=== PATIENT | female | born 1945 | race Caucasian/White ===

== ENCOUNTER → 2017-04-04 13:51 | Outpatient (CLI) | payer MEDICARE, SELFPAY ==
--- NOTE | 2017-04-04 14:16 | VDLE_ITS ---
Reason For Study: swelling RIGHT LEFT GSV is normal. CFV is compressible, spontaneous, phasic, CFV is compressible, spontaneous, phasic, competent, and demonstrates normal competent and demonstrates normal augmentation. augmentation. FV is compressible, spontaneous, phasic, competent and demonstrates normal augmentation. POP V is compressible, spontaneous, phasic, competent and demonstrates normal augmentation. T/P Trunk is compressible. PTV is compressible. RT PerV is compressible. Procedure Exam performed in department. The exam was diagnostic. A preliminary report was called and/or faxed to Dr. Piña. Interpretation Summary Deep veins of the right lower extremity are patent and compressible segmentally. There is no evidence of right lower extremity deep vein thrombosis. Valvular competence appears intact within the proximal deep venous system on the right . The right greater saphenous vein appears patent and compressible segmentally. Ordering Physician: Vito Piña Performed By: Ahmet Worrell RVKiesha
== END ==
PROVIDERS: Family Provider Internal Medicine; PCP Internal Medicine; Visit Provider Internal Medicine Hematology & Oncology
DX: M79.89 Other specified soft tissue disorders (principal); C25.0 Malignant neoplasm of head of pancreas
CPT/HCPCS: 93971

== ENCOUNTER → 2017-05-02 10:07 | Outpatient (CLI) | payer MEDICARE, SELFPAY ==
[2017-05-02 10:15] VITALS: BP 128/61; PULSE 93; RESP 18; TEMP 36.5; O2SAT 99; BMI 25.2
[2017-05-02 11:01] VITALS: BP 122/63; PULSE 95; RESP 18; TEMP 36.6; O2SAT 95
[2017-05-02 12:01] VITALS: BP 122/54; PULSE 97; RESP 16; TEMP 36.6
[2017-05-02 12:52] VITALS: BP 115/57; PULSE 83; TEMP 36.1; O2SAT 97
== END ==
PROVIDERS: Family Provider Internal Medicine; PCP Internal Medicine; Visit Provider Internal Medicine Hematology & Oncology
DX: Z51.89 Encounter for other specified aftercare (principal); C25.0 Malignant neoplasm of head of pancreas
CPT/HCPCS: 36430; 86850; 86900; 86920; 86922; J7040; P9016; A4216

== ENCOUNTER 2017-05-12 12:30 | Inpatient (IN) | payer MEDICARE, SELFPAY ==
[2017-05-12] VITALS (18 sets, daily range): BP systolic 114–202; BP diastolic 40–88; PULSE 86–104; RESP 14–20; TEMP 36.6–37.2; O2SAT 85–99; BMI 26.6; BMI 27.3
--- NOTE | 2017-05-12 12:53 | CT_ITS ---
STUDY: CT ABDOMEN AND PELVIS WITH CONTRAST REASON FOR EXAM: Female, 72 years old. Hypoxia. Abdominal pain. History of pancreatic cancer. RADIATION DOSAGE (If Supplied By Facility): CTDIvol = ( 9.08 ) mGy, DLP = ( 994.05 ) mGycm TECHNIQUE: Transaxial images were obtained from the dome of the diaphragm to the symphysis pubis without oral contrast. 100 ml of Isovue 300 contrast was administered. Sagittal and coronal images were reconstructed. Individualized dose optimization techniques were used for this CT. COMPARISON: Comparison is made with prior study dated August 25, 2016. FINDINGS: Moderate sized bilateral pleural effusions with underlying infiltration and/or atelectasis at the lung bases. Small pericardial effusion. Pneumobilia is seen in the left hepatic ducts in keeping with prior hepatobiliary surgery. The patient is status post cholecystectomy. Normal spleen. There appears to be prior Whipple's procedure with resection of the tail portion of the pancreas. There is diffuse atrophy of the pancreas. Normal bilateral adrenal glands. Normal right kidney. Stable 1.5 cm cyst in the posterior-lateral portion of the left kidney. Normal visualized stomach. Normal small intestine. There are multiple colonic diverticula consistent with diverticulosis. The appendix is visualized and appears normal. There is diffuse atherosclerotic calcification of the abdominal aorta, without a demonstrated aneurysm. There is a 1 cm hypodensity in the left lobe of liver adjacent to the falciform ligament. This may represent a small cyst. Normal inferior vena cava. Normal retroperitoneum. Normal urinary bladder. Small amount of free fluid is seen in the pelvis. Normal abdominal wall. There are diffuse degenerative changes of the visualized lumbar spine. CT/Abdomen/Pelvis W IV Cont ONLY IMPRESSION: Status post partial resection of the pancreas. Small amount of free fluid in the pelvis. Bilateral pleural effusions with bibasilar atelectasis. Small pericardial effusion. Electronically Signed: Gab Wang MD at 15:01 EST Tel [phone], Service support ,
--- NOTE | 2017-05-12 12:53 | EKG12_ITS ---
Test Reason : Blood Pressure : / mmHG Vent. Rate : 093 BPM Atrial Rate : 093 BPM P-R Int : 210 ms QRS Dur : 086 ms QT Int : 338 ms P-R-T Axes : 054 -40 012 degrees QTc Int : 420 ms Sinus rhythm with sinus arrhythmia with 1st degree A-V block Left axis deviation Low voltage QRS Abnormal ECG Confirmed by CHETAN BROOKS, EMMIE ([id number]), acquisition editor KARTHIKEYAN TALBERT ([id number]) on 05/15/2017 2:54:53 PM Referred By: Vito Piña Confirmed By:EMMIE BENTON MD
--- NOTE | 2017-05-12 12:55 | CT_ITS ---
STUDY: CTA CHEST REASON FOR EXAM: Female, 72 years old. Hypoxia. History of pancreatic cancer. RADIATION DOSAGE (If Supplied By Facility): CTDIvol = ( 9.08 ) mGy, DLP = ( 994.05 ) mGycm TECHNIQUE: The examination was performed with the intravenous administration of 100 ml of Isovue 370 contrast material. Post-processing of the angiographic images was performed, with multiplanar reformation and 3D reconstruction. Individualized dose optimization techniques were used for this CT. COMPARISON: None. FINDINGS: A left-sided portacatheter is seen with the tip in the superior vena cava. Normal enhancement of the main pulmonary artery and right and left pulmonary arteries. Normal enhancement of the bilateral peripheral pulmonary arteries. There is no demonstrated pulmonary embolism. Normal thoracic aorta and visualized great vessels. There is no demonstrated aortic dissection. Small pericardial effusion. Normal mediastinum. Normal hilar regions. Normal visualized trachea and bronchi. The lungs are well expanded. Bilateral pleural effusions right greater than left with bibasilar infiltration and/or atelectasis is worse on the right side. Patchy areas of airspace disease in both upper lobes. Normal pleura. Normal chest wall structures. There are degenerative changes of thoracic spine. Normal visualized upper abdomen. CT/CTA Chest W/WO Contrast IMPRESSION: Bilateral pleural effusions right greater than left with bibasilar atelectasis and/or infiltration. Patchy airspace disease in both lungs slightly worse in the left upper lobe. Small pericardial effusion. Electronically Signed: Gab Wang MD at 15:03 EST Tel [phone], Service support ,
--- NOTE | 2017-05-12 13:01 | ED.DCSUM_ITS ---
- ER Visit Summary Date of Service: 05/12/17 Chief Complaint: Weakness History of Present Illness: The patient is a 72 F currently being treated with adjunctive chemotherapy for pancreatic cancer who presents with 2 weeks of worsening weakness and decreased appetite. Was seen by Dr. Piña, who sent her in for further evaluation. Patient has been having a dry cough, shortness of breath, abdominal pain diffusely, vomiting anytime she eats, decreased appetite and today loose bowels. She not on oxygen at home. Dr. Piña was concerned that her tumor marker for pancreatic cancer is elevated and her lung exam was also concerning for possible right pleural effusion. Family and patient state that she gets short of breath even just talking. Her legs are very weak and she is having difficulty supporting her weight. pt has diabetes, paroxysmal atrial fibrillation not on anticoagulation, hypertension, history of pancreatic cancer Physical Examination: Vital signs: afebrile, hypertensive at 202/88, heart rate tachycardic at 102, patient 85% on room air, hypoxic General: well nourished, well developed, in no distress Skin: warm, dry, no rash, no pallor HEENT: normocephalic and atraumatic; PERRL, EOMI, moist mucous membranes Cardiovascular: tachycardic rate and rhythm without murmurs, 3+ symmetric peripheral edema, peripheral perfusion intact Respiratory: Frequent dry cough noted, respirations shallow, lungs are clear to auscultation bilaterally, diminished breath sounds in the right lower field Abdominal: Abdomen is soft, diffusely tender with normoactive bowel sounds, no guarding or rebound, no masses MSK: Moves all extremities, no deformities, normal strength on the generalized weakness Neuro: Awake and alert, oriented ?4. No facial droop, sensation and motor function intact and symmetric Test Results: Abnormal Lab Results 05/12/17 05/12/17 05/12/17 13:04 13:04 13:04 WBC 4.4 RBC 2.27 L Hgb 7.9 L Hct 23.3 L MCV 102.6 H MCH 34.8 H MCHC 33.9 RDW 19.7 H RDW Differential 71.8 H Plt Count 166 MPV 10.1 Immature Gran % (Auto) 0.500 Neut % (Auto) 72.5 H Lymph % (Auto) 14.4 L [place] % (Auto) 12.4 H Eos % (Auto) 0.2 Baso % (Auto) 0.0 Absolute Neuts (auto) 3.2 Absolute Lymphs (auto) 0.63 L Total Counted Not Reportable Platelet Estimate ADEQUATE Polychromasia RARE Hypochromasia 2+ Anisocytosis 1+ Schistocytes 1+ PT 14.3 INR 1.1 APTT 85.7 H Sodium 138 Potassium 4.6 Chloride 107 Carbon Dioxide 21.0 Anion Gap 10 BUN 20 H Creatinine 1.36 H Estim Creat Clear Calc 31.34 Est GFR (MDRD) Af Amer 49 L Est GFR (MDRD) Non-Af 40 L BUN/Creatinine Ratio 14.7 Glucose 120 H Lactic Acid Calcium 8.2 L Total Bilirubin 1.10 H AST 27 ALT 20 Alkaline Phosphatase 103 Troponin I < 0.02 B-Natriuretic Peptide Total Protein 5.3 L Albumin 2.6 L Globulin 2.7 Albumin/Globulin Ratio 1.0 Amylase 19 L Lipase 30 L Urine Color Urine Clarity Urine pH Ur Specific [place] Urine Protein Urine Glucose (UA) Urine Ketones Urine Occult Blood Urine Nitrite Urine Bilirubin Urine Urobilinogen Ur Leukocyte Esterase Urine RBC Urine WBC Ur Squamous Epith Cells Urine Bacteria Hyaline Casts Urine Mucus Crossmatch 05/12/17 05/12/17 05/12/17 13:04 13:04 14:25 WBC RBC Hgb Hct MCV MCH MCHC RDW RDW Differential Plt Count MPV Immature Gran % (Auto) Neut % (Auto) Lymph % (Auto) [place] % (Auto) Eos % (Auto) Baso % (Auto) Absolute Neuts (auto) Absolute Lymphs (auto) Total Counted Platelet Estimate Polychromasia Hypochromasia Anisocytosis Schistocytes PT INR APTT Sodium Potassium Chloride Carbon Dioxide Anion Gap BUN Creatinine Estim Creat Clear Calc Est GFR (MDRD) Af Amer Est GFR (MDRD) Non-Af BUN/Creatinine Ratio Glucose Lactic Acid 1.2 Calcium Total Bilirubin AST ALT Alkaline Phosphatase Troponin I B-Natriuretic Peptide 158.6 H Total Protein Albumin Globulin Albumin/Globulin Ratio Amylase Lipase Urine Color Yellow Urine Clarity Sl. Cloudy Urine pH 5.0 Ur Specific [place] 1.015 Urine Protein 30 H Urine Glucose (UA) Normal Urine Ketones Negative Urine Occult Blood 150 H Urine Nitrite Negative Urine Bilirubin Negative Urine Urobilinogen Normal Ur Leukocyte Esterase 25 H Urine RBC 5-10 SEEN Urine WBC 0-5 SEEN Ur Squamous Epith Cells 0-5 SEEN Urine Bacteria RARE Hyaline Casts 0-5 SEEN Urine Mucus 0 SEEN Crossmatch 05/12/17 17:35 WBC RBC Hgb Hct MCV MCH MCHC RDW RDW Differential Plt Count MPV Immature Gran % (Auto) Neut % (Auto) Lymph % (Auto) [place] % (Auto) Eos % (Auto) Baso % (Auto) Absolute Neuts (auto) Absolute Lymphs (auto) Total Counted Platelet Estimate Polychromasia Hypochromasia Anisocytosis Schistocytes PT INR APTT Sodium Potassium Chloride Carbon Dioxide Anion Gap BUN Creatinine Estim Creat Clear Calc Est GFR (MDRD) Af Amer Est GFR (MDRD) Non-Af BUN/Creatinine Ratio Glucose Lactic Acid Calcium Total Bilirubin AST ALT Alkaline Phosphatase Troponin I B-Natriuretic Peptide Total Protein Albumin Globulin Albumin/Globulin Ratio Amylase Lipase Urine Color Urine Clarity Urine pH Ur Specific [place] Urine Protein Urine Glucose (UA) Urine Ketones Urine Occult Blood Urine Nitrite Urine Bilirubin Urine Urobilinogen Ur Leukocyte Esterase Urine RBC Urine WBC Ur Squamous Epith Cells Urine Bacteria Hyaline Casts Urine Mucus Crossmatch See Detail Emergency Department Course and Treatment: Patient had an episode of hypoxia on room air when she initially transferred from the wheelchair to the bed. She was placed on oxygen and maintained good oxygen saturation while on oxygen and at rest. Labs were performed showing anemia, and patient has required a blood transfusion last week because of anemia. Patient had no significant electrolyte derangements and normal lipase. Normal hepatic function. CTA of the chest showed bilateral pleural effusions, right greater than left and concern for possible infiltrates. Small pericardial effusion. No pulmonary embolism noted. CT of the abdomen showed no gross evidence of return of pancreatic cancer. Because of patient's declining condition, the new pericardial effusions and hypoxia, she was discussed with Dr. Piña who had originally sent her in. He is concerned she is developing anasarca. We discussed transfusion and he at this time does not feel it is acutely needed, although this will remain an option. We also agreed that this does not seem like pneumonia despite the findings on the CT of questionable infiltrate versus atelectasis. Patient was started on Lasix for the concern for volume overload. She was discussed with Dr. Toney for admission. Treatment Plan: [] Disposition: [] Impression: History of pancreatic cancer, anasarca, bilateral pleural effusions , small pericardial effusion This note was generated with [employer] software. It may contain incorrect words, spelling, and punctuation that were not noted in review of the chart prior to signing ED Disposition - Plan for ED Patient: Disposition: Acute Care Hospital [facility] Chief Complaint: Abd Pain
[2017-05-12] MEDS: 0.9% Normal Saline 1,000 ML 1000 ML IV (13:06)
[2017-05-12 13:19] LABS: Absolute Lymphocyte Count 0.63 X10^3/ul (0.83-4.51); Absolute Neutrophil Count 3.2 X10^3/uL (2.0-7.7); Eosinophil# 0.01 X10^3/uL; Eosinophils% 0.2 % (0-5); Hematocrit 23.3 % (37-47); Hemoglobin 7.9 g/dl (12.0-15.0); Lymphocyte # 0.63 X10^3/ul (4.0); Lymphocyte % 14.4 % (19-41); Mean Corp Hgb Conc 33.9 g/gl (32-36); Mean Corpuscular Hgb 34.8 pg (27.0-32.0); Mean Corpuscular Volume 102.6 fL (81-99); Mean Platelet Vol. 10.1 fl (6.2-12.0); Monocyte# 0.54 X10^3/uL; Monocyte% 12.4 % (0-10); Neutrophil # 3.17 X10^3/uL (2.7-7.7); Neutrophil % 72.5 % (47-70); Platelet Count 166 K/mm3 (150-450); RBC Distribution Width CV 19.7 % (11.6-14.6); RBC Distribution Width SD 71.8 fl (35.1-43.9); Red Blood Count 2.27 M/mm3 (4.2-5.4); White Blood Count 4.4 K/mm3 (4.4-11.0)
[2017-05-12 13:22] LABS: Differential Indicated SCAN CRITERIA MET; POSITIVE COUNT NO; POSITIVE DIFFERENTIAL NO; POSITIVE MORPHOLOGY YES
[2017-05-12 13:24] LABS: International Normalized Ratio 1.1; Prothrombin Time (Protime)PT. 14.3 SECONDS (11.7-14.9)
[2017-05-12 13:26] LABS: Partial Thromboplast Time 85.7 Seconds (24.1-36.2)
[2017-05-12 13:33] LABS: AST(SGOT) 27 U/L (15-37); Alanine Aminotransfer ALT/SGPT 20 U/L (13-56); Albumin, Serum 2.6 g/dL (3.2-5.0); Alkaline Phosphatase 103 U/L (45-117); Amylase 19 U/L (25-115); Anion Gap 10 (5-15); BUN 20 mg/dL (7-18); BUN/Creat Ratio 14.7 RATIO (10-20); Calcium,Total 8.2 mg/dL (8.5-10.1); Chloride 107 mmol/L (98-107); Creatinine, Serum 1.36 mg/dL (0.55-1.02); EST Glomerular Filtration Rate 40 mL/min (>60); Est Glom Filt Rate - Afr Amer 49 mL/min (>60); Estimated Creatinine Clearance 31.34 ml/min; Globulin 2.7 g/dL (2.2-4.2); Glucose 120 mg/dL (74-106); Lipase 30 U/L (73-393); Potassium 4.6 mmol/L (3.5-5.1); Protein, Total 5.3 g/dL (6.4-8.2); Sodium Level 138 mmol/L (136-145)
[2017-05-12 13:40] LABS: Lactic Acid 1.2 mmol/L (0.4-2.0)
[2017-05-12 13:45] LABS: Anisocytosis 1+; Hypochromasia 2+; Platelet Estimate ADEQUATE (ADEQ); Polychromasia RARE; Schistocytes 1+
[2017-05-12 14:39] LABS: Mucous, Urine 0 SEEN /hpf (<or=2+)
[2017-05-12 14:40] LABS: Color, Urine Yellow (Yellow); Glucose, Dipstick Normal (Normal); Ketone-Dipstick Negative (Negative); Leukocyte Esterase-Dipstick 25 /ul (Negative); Nitrite-Dipstick Negative (Negative); Occult Blood-Urine 150 /ul (Negative); Protein-Dipstick 30 mg/dl (Negative); Specific Gravity, Urine 1.015 (1.002-1.030); Urine Bilirubin Dipstick Negative (Negative); Urine Clarity Sl. Cloudy (Clear); Urine Urobilinogen Normal (Normal)
[2017-05-12 14:47] LABS: White Blood Cells 0-5 SEEN /hpf (0-5)
[2017-05-12 14:50] LABS: Bacteria RARE /hpf (None Seen); Hyaline Cast 0-5 SEEN /lpf (0-5); Red Blood Cells-Urine 5-10 SEEN /hpf (0-5); Squamous Epithelial Cells - UA 0-5 SEEN /hpf (5-10)
[2017-05-12] MEDS: Furosemide 40 MG/4 ML Vial IV (16:16)
--- NOTE | 2017-05-12 16:25 | PCM.HP.STD ---
Problem List (1) Shortness of breath Status: Acute (2) Cough Status: Acute History of Present Illness Date of Admission: 05/12/17 Chief Complaint: shortness of breath, cough The patient is a 72 year old F seen in the emergency room at [facility] after being sent in by her oncologist for evaluation due to a low pulse ox and complaints of shortness of breath in his office today. 3 of pancreatic cancer and underwent a Whipple's procedure in September 2016, she has had chronic anemia and has had blood transfusions since that time and she was given chemotherapy for the pancreatic cancer but oncology states that because of her chronic anemia they have not been able to give her full dose chemotherapy. Patient's been complaining of shortness of breath over the last 1-2 weeks along with weakness and cough productive of clear sputum. Patient denies any chest pain. Patient's family also states that today the patient's been complaining of nausea and is unable to eat. Workup in the emergency room included labs which showed a normal white blood cell count, hemoglobin was 7.9, BUN was elevated at 20, creatinine was 1.36. CTA of the chest was performed which showed bilateral pleural effusions right greater than left, bibasilar atelectasis, and a pericardial effusion which was small. Also noted was patchy airspace disease in both lungs. CT of the abdomen and pelvis was also performed which showed a small amount of free fluid in the pelvis and a small hypodense area in the liver felt to be a cyst which is approximately 1 cm in diameter. On examination, patient has severe edema of both lower legs, according to the family and the patient, she has had leg edema since shortly after her surgery was performed last year for her pancreatic cancer. Patient will be admitted for bilateral pleural effusions with hypoxia-her pulse ox on room air was 89%-and anemia. I talked with Dr. Piña concerning her admission. Past Medical History Allergies bacitracin [From Neosporin ([id number])] Allergy (Verified 05/12/17 12:34) Rash neomycin [From Neosporin ([id number])] Allergy (Verified 05/12/17 12:34) Rash polymyxin B [From Neosporin ([id number])] Allergy (Verified 05/12/17 12:34) Rash Home Medications: Ambulatory Orders Medication Instructions Recorded Aspirin E.C. [Ecotrin] 81 mg PO DAILY@0800 01/19/15 Atorvastatin Calcium [Lipitor] 40 mg PO DAILY 01/19/15 Lisinopril [Zestril] 10 mg PO BID 01/19/15 GlipiZIDE [Glucotrol] 5 mg PO BIDAC 02/10/16 Cyanocobalamin [Vitamin B12] 1,000 mcg IM Q30D 05/12/17 Furosemide [Lasix] 40 mg PO BIDLX 05/12/17 Lipase/Protease/Amylase [Creon Dr 2 cap PO TIDCM 05/12/17 12,000 Units Capsule] Magnesium Oxide [Mag-Ox 400] 800 mg PO BID 05/12/17 Ondansetron [Zofran] 8 mg PO Q8H PRN PRN 05/12/17 Potassium Chloride 20 meq PO DAILY 05/12/17 Surgical History: - - cochlear implant, ear surgeries Whipple's procedure, MediPort insertion, breast reduction Psychiatric History: No pertinent psych hx [employer] History: No pertinent [employer] history Lives: With Family Smoking Status: Never smoker Tobacco Use: Non-smoker Alcohol: Occasional Drugs: None - *Family History Maternal History Items: No pertinent history Paternal History Items: Cancer - Colon cancer Review of Systems Constitutional: Reports: Weakness, Fatigue. Denies: Anorexia, Chills, Fever, Night Sweats, Weight Change Eyes: Denies: Blurred vision, Cataracts, Conjunctivae Inflammation, Double vision, Drainage HEENT: Denies: Difficulty Swallowing, Dysphasia, Ear Pain, Eye Pain, Head Aches, Hearing Changes, Nasal bleeding, Nasal Congestion, Post Nasal Drip Cardiovascular: Denies: Chest Pain, Claudication, Chest Pressure, Chest Tightness, Edema, Heaviness, Orthopnea, Palpitations, Paroxysmal Noc. Dyspnea Respiratory: Reports: Cough, Shortness of Breath, Shortness of breath upon exertion, Sputum production - clear. Denies: Hemoptysis, Pleuritic Pain, Shortness of breath at rest, Wheezing Gastrointestinal: Reports: Nausea, Vomiting. Denies: Abdominal Pain, Constipation, Diarrhea, Hematemesis, Hematochezia, Melena Genitourinary: Denies: Dysuria, Frequency, Hematuria, Hesitancy, Incontinence, Nocturia, Urgency Gynecological: Denies: Breast symptoms Musculoskeletal: Denies: Back Pain, Foot Pain, Hand Pain, Joint Pain, Joint stiffness, Joint swelling, Joint Tenderness, Leg Pain Skin: Denies: Dryness, Jaundice, Pruritis, Rash Neurological: Denies: Balance problems, Blurred vision, Double vision, Change in Speech, Slurred speech, Difficulty swallowing, Focal weakness, Headaches, Incoordination, Numbness, Tingling, Tremor, Seizures Psychiatric: Denies: Anxiety, Depression, Homicidal Ideations, Suicidal Ideations Endocrine: Denies: Change in Body Habitus, Heat/ Cold Intolerance, Polydipsia, Polyuria Hematologic/ Lymphatic: Denies: Adenopathy, Anemia, Easy Bruising, Easy Bleeding, Petechiae, Purpura VTE Information - Inpt Only VTE Present on Admission: No VTE Mechan Device Prophylaxis: None VTE Pharm Prophylaxis ordered?: Yes Patient Problems: Active and Suspected Problems Shortness of breath (Acute) Cough (Acute) - Physical Exam General: Alert, Oriented x3, Cooperative, No apparent distress, Well developed, - - Appears fatigued and unwell HEENT: Atraumatic, PERRLA, EOMI, Normocephalic Neck: Supple, No JVD, Negative Carotid Bruits, No Nuchal Rigidity, Trachea Midline, Thyroid Normal Size and Texture Lungs: No rhonchi, No wheeze, Diminished - Diminished breath sounds at the right lower lung field, Rales - Inspiratory rales at the left lung base Cardiovascular: Regular rate, Regular Rhythm, Normal S1, Normal S2, No murmurs, No Ectopic Activity, PMI Normal, No rub noted, No Gallop Abdomen: Bowel Sounds Present, Soft, Non Tender, Non-Distended, No hernias noted Extremities: No clubbing, No cyanosis, Capillary Refill Less than 3 Seconds, Edema - + 3 mm edema is noted over the patient's lower legs Skin: No rashes, No breakdown Musculoskeletal: No Tenderness to Palpation of Joints or Extremities Neurological: Cranial nerves II-XII grossly intact, Neuro grossly intact, Sensory exam intact to light touch and pain, Coordination normal Psych/Mental Status: Normal Affect, Appropriate, Alert and oriented to time, place, person, mood and affect Vital Signs Temp Pulse Resp BP Pulse Ox 98.9 F 90 16 134/64 H 98 05/12/17 12:31 05/12/17 15:12 05/12/17 15:12 05/12/17 15:12 05/12/17 15:12 Oxygen Flow Rate (L/min) 2 Oxygen Delivery Method Nasal Cannula Weight: 70.307 kg Body Mass Index (BMI) 26.6 Finger Stick Blood Glucose 338 Laboratory Tests Past 24 Hrs 05/12/17 05/12/17 05/12/17 13:04 13:04 13:04 WBC 4.4 RBC 2.27 L Hgb 7.9 L Hct 23.3 L MCV 102.6 H MCH 34.8 H MCHC 33.9 RDW 19.7 H RDW Differential 71.8 H Plt Count 166 MPV 10.1 Immature Gran % (Auto) 0.500 Neut % (Auto) 72.5 H Lymph % (Auto) 14.4 L [place] % (Auto) 12.4 H Eos % (Auto) 0.2 Baso % (Auto) 0.0 Absolute Neuts (auto) 3.2 Absolute Lymphs (auto) 0.63 L Total Counted Not Reportable Platelet Estimate ADEQUATE Polychromasia RARE Hypochromasia 2+ Anisocytosis 1+ Schistocytes 1+ PT 14.3 INR 1.1 APTT 85.7 H Sodium 138 Potassium 4.6 Chloride 107 Carbon Dioxide 21.0 Anion Gap 10 BUN 20 H Creatinine 1.36 H Estim Creat Clear Calc 31.34 Est GFR (MDRD) Af Amer 49 L Est GFR (MDRD) Non-Af 40 L BUN/Creatinine Ratio 14.7 Glucose 120 H Lactic Acid Calcium 8.2 L Total Bilirubin 1.10 H AST 27 ALT 20 Alkaline Phosphatase 103 Troponin I < 0.02 B-Natriuretic Peptide Total Protein 5.3 L Albumin 2.6 L Globulin 2.7 Albumin/Globulin Ratio 1.0 Amylase 19 L Lipase 30 L Urine Color Urine Clarity Urine pH Ur Specific [place] Urine Protein Urine Glucose (UA) Urine Ketones Urine Occult Blood Urine Nitrite Urine Bilirubin Urine Urobilinogen Ur Leukocyte Esterase Urine RBC Urine WBC Ur Squamous Epith Cells Urine Bacteria Hyaline Casts Urine Mucus 05/12/17 05/12/17 05/12/17 13:04 13:04 14:25 WBC RBC Hgb Hct MCV MCH MCHC RDW RDW Differential Plt Count MPV Immature Gran % (Auto) Neut % (Auto) Lymph % (Auto) [place] % (Auto) Eos % (Auto) Baso % (Auto) Absolute Neuts (auto) Absolute Lymphs (auto) Total Counted Platelet Estimate Polychromasia Hypochromasia Anisocytosis Schistocytes PT INR APTT Sodium Potassium Chloride Carbon Dioxide Anion Gap BUN Creatinine Estim Creat Clear Calc Est GFR (MDRD) Af Amer Est GFR (MDRD) Non-Af BUN/Creatinine Ratio Glucose Lactic Acid 1.2 Calcium Total Bilirubin AST ALT Alkaline Phosphatase Troponin I B-Natriuretic Peptide Pending Total Protein Albumin Globulin Albumin/Globulin Ratio Amylase Lipase Urine Color Yellow Urine Clarity Sl. Cloudy Urine pH 5.0 Ur Specific [place] 1.015 Urine Protein 30 H Urine Glucose (UA) Normal Urine Ketones Negative Urine Occult Blood 150 H Urine Nitrite Negative Urine Bilirubin Negative Urine Urobilinogen Normal Ur Leukocyte Esterase 25 H Urine RBC 5-10 SEEN Urine WBC 0-5 SEEN Ur Squamous Epith Cells 0-5 SEEN Urine Bacteria RARE Hyaline Casts 0-5 SEEN Urine Mucus 0 SEEN Assessment/Plan Active and Suspected Problems Shortness of breath (Acute) Cough (Acute) #1 hypoxia-secondary to bilateral pleural effusions-patient will be admitted to [facility], she will be monitored on telemetry, pulse ox will be monitored, patient will be given IV Lasix, chest x-ray will be repeated tomorrow #2 bilateral pleural effusions-etiology unclear at this point, patient will be given IV Lasix, if the pleural effusions persist on Monday, consideration will be given towards performing a thoracentesis to analyze fluid. Patient had an echocardiogram done last year I really do not think this needs to be repeated, at that time, she was noted to have a normal EF with mild pulmonary hypertension #3 chronic anemia-exact etiology unclear, patient will be transfused 2 units of packed red blood cells #4 history of pancreatic cancer-recently patient's CA 19 antigen levels have risen, CAT scan of the abdomen today does not show any evidence of recurrent cancer however #5 patchy lung infiltrates bilaterally-etiology of this is unknown at this time, it may be that the patient has recurrent pancreatic cancer in the lungs versus areas of atelectasis in the lungs # 6 type 2 diabetes-patient's medication will be continued from home, fingerstick blood sugars will be monitored and sliding scale insulin will be given per protocol I will hold the patient's lisinopril for now due to the fact we will be giving IV diuresis Code Visit Inpatient E&M: 98067 Init Hosp L3
[2017-05-12 16:33] LABS: BNP,B-Type NATRIURETIC PEPTIDE 158.6 pg/mL (0-100)
--- NOTE | 2017-05-12 16:35 | HP.PCM_ITS ---
Problem List (1) Shortness of breath Status: Acute (2) Cough Status: Acute History of Present Illness Date of Admission: 05/12/17 Chief Complaint: shortness of breath, cough The patient is a 72 year old F seen in the emergency room at [facility] after being sent in by her oncologist for evaluation due to a low pulse ox and complaints of shortness of breath in his office today. 3 of pancreatic cancer and underwent a Whipple's procedure in September 2016, she has had chronic anemia and has had blood transfusions since that time and she was given chemotherapy for the pancreatic cancer but oncology states that because of her chronic anemia they have not been able to give her full dose chemotherapy. Patient's been complaining of shortness of breath over the last 1-2 weeks along with weakness and cough productive of clear sputum. Patient denies any chest pain. Patient's family also states that today the patient's been complaining of nausea and is unable to eat. Workup in the emergency room included labs which showed a normal white blood cell count, hemoglobin was 7.9, BUN was elevated at 20, creatinine was 1.36. CTA of the chest was performed which showed bilateral pleural effusions right greater than left, bibasilar atelectasis, and a pericardial effusion which was small. Also noted was patchy airspace disease in both lungs. CT of the abdomen and pelvis was also performed which showed a small amount of free fluid in the pelvis and a small hypodense area in the liver felt to be a cyst which is approximately 1 cm in diameter. On examination, patient has severe edema of both lower legs, according to the family and the patient, she has had leg edema since shortly after her surgery was performed last year for her pancreatic cancer. Patient will be admitted for bilateral pleural effusions with hypoxia-her pulse ox on room air was 89%-and anemia. I talked with Dr. Piña concerning her admission. Past Medical History Allergies bacitracin [From Neosporin ([id number])] Allergy (Verified 05/12/17 12:34) Rash neomycin [From Neosporin ([id number])] Allergy (Verified 05/12/17 12:34) Rash polymyxin B [From Neosporin ([id number])] Allergy (Verified 05/12/17 12:34) Rash Home Medications: Ambulatory Orders Medication Instructions Recorded Aspirin E.C. [Ecotrin] 81 mg PO DAILY@0800 01/19/15 Atorvastatin Calcium [Lipitor] 40 mg PO DAILY 01/19/15 Lisinopril [Zestril] 10 mg PO BID 01/19/15 GlipiZIDE [Glucotrol] 5 mg PO BIDAC 02/10/16 Cyanocobalamin [Vitamin B12] 1,000 mcg IM Q30D 05/12/17 Furosemide [Lasix] 40 mg PO BIDLX 05/12/17 Lipase/Protease/Amylase [Creon Dr 2 cap PO TIDCM 05/12/17 12,000 Units Capsule] Magnesium Oxide [Mag-Ox 400] 800 mg PO BID 05/12/17 Ondansetron [Zofran] 8 mg PO Q8H PRN PRN 05/12/17 Potassium Chloride 20 meq PO DAILY 05/12/17 Surgical History: - - cochlear implant, ear surgeries Whipple's procedure, MediPort insertion, breast reduction Psychiatric 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 Denies: Anorexia, Chills, Fever, Night Sweats, Weight Change Eyes: Denies: Blurred vision, Cataracts, Conjunctivae Inflammation, Double vision, Drainage HEENT: Denies: Difficulty Swallowing, Dysphasia, Ear Pain, Eye Pain, Head Aches , Hearing Changes, Nasal bleeding, Nasal Congestion, Post Nasal Drip Cardiovascular: Denies: Chest Pain, Claudication, Chest Pressure, Chest Tightness, Edema, Heaviness, Orthopnea, Palpitations, Paroxysmal Noc. Dyspnea Respiratory: Reports: Cough, Shortness of Breath, Shortness of breath upon exertion, Sputum production - clear. Denies: Hemoptysis, Pleuritic Pain, Shortness of breath at rest, Wheezing Gastrointestinal: Reports: Nausea, Vomiting. Denies: Abdominal Pain, Constipation, Diarrhea, Hematemesis, Hematochezia, Melena Genitourinary: Denies: Dysuria, Frequency, Hematuria, Hesitancy, Incontinence, Nocturia, Urgency Gynecological: Denies: Breast symptoms Musculoskeletal: Denies: Back Pain, Foot Pain, Hand Pain, Joint Pain, Joint stiffness, Joint swelling, Joint Tenderness, Leg Pain Skin: Denies: Dryness, Jaundice, Pruritis, Rash Neurological: Denies: Balance problems, Blurred vision, Double vision, Change in Speech, Slurred speech, Difficulty swallowing, Focal weakness, Headaches, Incoordination, Numbness, Tingling, Tremor, Seizures Psychiatric: Denies: Anxiety, Depression, Homicidal Ideations, Suicidal Ideations Endocrine: Denies: Change in Body Habitus, Heat/ Cold Intolerance, Polydipsia, Polyuria Hematologic/ Lymphatic: Denies: Adenopathy, Anemia, Easy Bruising, Easy Bleeding , Petechiae, Purpura VTE Information - Inpt Only VTE Present on Admission: No VTE Mechan Device Prophylaxis: None VTE Pharm Prophylaxis ordered?: Yes Patient Problems: Active and Suspected Problems Shortness of breath (Acute) Cough (Acute) - Physical Exam General: Alert, Oriented x3, Cooperative, No apparent distress, Well developed, - - Appears fatigued and unwell HEENT: Atraumatic, PERRLA, EOMI, Normocephalic Neck: Supple, No JVD, Negative Carotid Bruits, No Nuchal Rigidity, Trachea Midline, Thyroid Normal Size and Texture Lungs: No rhonchi, No wheeze, Diminished - Diminished breath sounds at the right lower lung field, Rales - Inspiratory rales at the left lung base Cardiovascular: Regular rate, Regular Rhythm, Normal S1, Normal S2, No murmurs, No Ectopic Activity, PMI Normal, No rub noted, No Gallop Abdomen: Bowel Sounds Present, Soft, Non Tender, Non-Distended, No hernias noted Extremities: No clubbing, No cyanosis, Capillary Refill Less than 3 Seconds, Edema - + 3 mm edema is noted over the patient's lower legs Skin: No rashes, No breakdown Musculoskeletal: No Tenderness to Palpation of Joints or Extremities Neurological: Cranial nerves II-XII grossly intact, Neuro grossly intact, Sensory exam intact to light touch and pain, Coordination normal Psych/Mental Status: Normal Affect, Appropriate, Alert and oriented to time, place, person, mood and affect Vital Signs Temp Pulse Resp BP Pulse Ox 98.9 F 90 16 134/64 H 98 05/12/17 12:31 05/12/17 15:12 05/12/17 15:12 05/12/17 15:12 05/12/17 15:12 Oxygen Flow Rate (L/min) 2 Oxygen Delivery Method Nasal Cannula Weight: 70.307 kg Body Mass Index (BMI) 26.6 Finger Stick Blood Glucose 338 Laboratory Tests Past 24 Hrs 05/12/17 05/12/17 05/12/17 13:04 13:04 13:04 WBC 4.4 RBC 2.27 L Hgb 7.9 L Hct 23.3 L MCV 102.6 H MCH 34.8 H MCHC 33.9 RDW 19.7 H RDW Differential 71.8 H Plt Count 166 MPV 10.1 Immature Gran % (Auto) 0.500 Neut % (Auto) 72.5 H Lymph % (Auto) 14.4 L [place] % (Auto) 12.4 H Eos % (Auto) 0.2 Baso % (Auto) 0.0 Absolute Neuts (auto) 3.2 Absolute Lymphs (auto) 0.63 L Total Counted Not Reportable Platelet Estimate ADEQUATE Polychromasia RARE Hypochromasia 2+ Anisocytosis 1+ Schistocytes 1+ PT 14.3 INR 1.1 APTT 85.7 H Sodium 138 Potassium 4.6 Chloride 107 Carbon Dioxide 21.0 Anion Gap 10 BUN 20 H Creatinine 1.36 H Estim Creat Clear Calc 31.34 Est GFR (MDRD) Af Amer 49 L Est GFR (MDRD) Non-Af 40 L BUN/Creatinine Ratio 14.7 Glucose 120 H Lactic Acid Calcium 8.2 L Total Bilirubin 1.10 H AST 27 ALT 20 Alkaline Phosphatase 103 Troponin I < 0.02 B-Natriuretic Peptide Total Protein 5.3 L Albumin 2.6 L Globulin 2.7 Albumin/Globulin Ratio 1.0 Amylase 19 L Lipase 30 L Urine Color Urine Clarity Urine pH Ur Specific [place] Urine Protein Urine Glucose (UA) Urine Ketones Urine Occult Blood Urine Nitrite Urine Bilirubin Urine Urobilinogen Ur Leukocyte Esterase Urine RBC Urine WBC Ur Squamous Epith Cells Urine Bacteria Hyaline Casts Urine Mucus 05/12/17 05/12/17 05/12/17 13:04 13:04 14:25 WBC RBC Hgb Hct MCV MCH MCHC RDW RDW Differential Plt Count MPV Immature Gran % (Auto) Neut % (Auto) Lymph % (Auto) [place] % (Auto) Eos % (Auto) Baso % (Auto) Absolute Neuts (auto) Absolute Lymphs (auto) Total Counted Platelet Estimate Polychromasia Hypochromasia Anisocytosis Schistocytes PT INR APTT Sodium Potassium Chloride Carbon Dioxide Anion Gap BUN Creatinine Estim Creat Clear Calc Est GFR (MDRD) Af Amer Est GFR (MDRD) Non-Af BUN/Creatinine Ratio Glucose Lactic Acid 1.2 Calcium Total Bilirubin AST ALT Alkaline Phosphatase Troponin I B-Natriuretic Peptide Pending Total Protein Albumin Globulin Albumin/Globulin Ratio Amylase Lipase Urine Color Yellow Urine Clarity Sl. Cloudy Urine pH 5.0 Ur Specific [place] 1.015 Urine Protein 30 H Urine Glucose (UA) Normal Urine Ketones Negative Urine Occult Blood 150 H Urine Nitrite Negative Urine Bilirubin Negative Urine Urobilinogen Normal Ur Leukocyte Esterase 25 H Urine RBC 5-10 SEEN Urine WBC 0-5 SEEN Ur Squamous Epith Cells 0-5 SEEN Urine Bacteria RARE Hyaline Casts 0-5 SEEN Urine Mucus 0 SEEN Assessment/Plan Active and Suspected Problems Shortness of breath (Acute) Cough (Acute) #1 hypoxia-secondary to bilateral pleural effusions-patient will be admitted to [facility], she will be monitored on telemetry, pulse ox will be monitored, patient will be given IV Lasix, chest x-ray will be repeated tomorrow #2 bilateral pleural effusions-etiology unclear at this point, patient will be given IV Lasix, if the pleural effusions persist on Monday, consideration will be given towards performing a thoracentesis to analyze fluid. Patient had an echocardiogram done last year I really do not think this needs to be repeated, at that time, she was noted to have a normal EF with mild pulmonary hypertension #3 chronic anemia-exact etiology unclear, patient will be transfused 2 units of packed red blood cells #4 history of pancreatic cancer-recently patient's CA 19 antigen levels have risen, CAT scan of the abdomen today does not show any evidence of recurrent cancer however #5 patchy lung infiltrates bilaterally-etiology of this is unknown at this time , it may be that the patient has recurrent pancreatic cancer in the lungs versus areas of atelectasis in the lungs # 6 type 2 diabetes-patient's medication will be continued from home, fingerstick blood sugars will be monitored and sliding scale insulin will be given per protocol I will hold the patient's lisinopril for now due to the fact we will be giving IV diuresis Code Visit Inpatient E&M: 85960 Init Hosp L3
[2017-05-12] MEDS: Albuterol 2.5 MG/3 ML VIAL.NEB. INHALATION (18:53)
[2017-05-12] MEDS: Magnesium Oxide 400 MG Tablet PO (21:32)
[2017-05-12] MEDS: Furosemide 20 MG/2 ML VIAL IV (22:34)
[2017-05-12 22:46] LABS: Bedside Glucose 108 mg/dL (70-110)
[2017-05-13] VITALS (11 sets, daily range): BP systolic 117–154; BP diastolic 52–68; PULSE 84–100; RESP 16–20; TEMP 36.9–37.1; O2SAT 90–96
--- NOTE | 2017-05-13 05:55 | RAD_ITS ---
STUDY: X-RAY CHEST REASON FOR EXAM: Female, 72 years old. SOB, pleural effusion TECHNIQUE: Single AP portable view of the chest. COMPARISON: None. FINDINGS: MediPort is seen on the left side is in good position. Ill-defined airspace disease seen in the right lung lower lobe may represent partial atelectasis or pneumonia. Small bilateral pleural effusions more prominent on the right side. There is moderate cardiac enlargement. Normal mediastinum and ancelmo. Normal visualized pulmonary arteries. Normal visualized aortic arch and descending thoracic aorta. Normal visualized thoracic spine. Normal visualized ribs, clavicles, and shoulders. There is no demonstrated abnormality of the visualized soft tissue structures of the upper abdomen. RAD/Chest 1 View (Portable) IMPRESSION: Moderate cardiomegaly. Small bilateral pleural effusions. Possible pneumonia or atelectasis in the right lung lower lobe. Electronically Signed: Carl Ragsdale MD at 5:31 EST Tel , Service support ,
[2017-05-13] MEDS: Furosemide 20 MG/2 ML VIAL IV ×3 (05:57→21:45)
[2017-05-13 06:11] LABS: Absolute Lymphocyte Count 0.65 X10^3/ul (0.83-4.51); Basophil# 0.01 X10^3/uL; Basophil% 0.2 % (0-1); Eosinophil# 0.01 X10^3/uL; Eosinophils% 0.2 % (0-5); Hematocrit 28.3 % (37-47); Hemoglobin 9.7 g/dl (12.0-15.0); Lymphocyte # 0.65 X10^3/ul (4.0); Lymphocyte % 15.3 % (19-41); Mean Corp Hgb Conc 34.3 g/gl (32-36); Mean Corpuscular Volume 99.3 fL (81-99); Mean Platelet Vol. 9.9 fl (6.2-12.0); Monocyte# 0.54 X10^3/uL; Monocyte% 12.7 % (0-10); Neutrophil % 70.7 % (47-70); POSITIVE COUNT NO; POSITIVE DIFFERENTIAL NO; POSITIVE MORPHOLOGY NO; Platelet Count 172 K/mm3 (150-450); RBC Distribution Width CV 18.9 % (11.6-14.6); RBC Distribution Width SD 62.6 fl (35.1-43.9); Red Blood Count 2.85 M/mm3 (4.2-5.4); White Blood Count 4.3 K/mm3 (4.4-11.0)
[2017-05-13 06:24] LABS: Anion Gap 8 (5-15); BUN 18 mg/dL (7-18); Calcium,Total 7.7 mg/dL (8.5-10.1); Chloride 109 mmol/L (98-107); Creatinine, Serum 1.29 mg/dL (0.55-1.02); EST Glomerular Filtration Rate 43 mL/min (>60); Est Glom Filt Rate - Afr Amer 52 mL/min (>60); Estimated Creatinine Clearance 33.04 ml/min; Glucose 88 mg/dL (74-106); Potassium 4.2 mmol/L (3.5-5.1); Sodium Level 140 mmol/L (136-145)
[2017-05-13 06:51] LABS: Bedside Glucose 101 mg/dL (70-110)
[2017-05-13] MEDS: Albuterol 2.5 MG/3 ML VIAL.NEB. INHALATION ×3 (07:01→19:38)
[2017-05-13] MEDS: Aspirin E.C. 81 MG Tablet PO (08:23)
--- NOTE | 2017-05-13 10:02 | ECHOD_ITS ---
Reason For Study: CHF Procedure This was a 2D Doppler, Color Flow transthoracic echocardiogram. Exam performed portable in patient room. Left Ventricle Normal LV size. Left ventricular systolic function is normal. The estimated ejection fraction is 60 %. No evidence for diastolic dysfunction. No regional wall motion abnormalities noted. Right Ventricle Normal RV size. Normal systolic function. Atria Normal left atrium. Normal right atrium. Mitral Valve Normal mitral valve. Tricuspid Valve Normal tricuspid valve. Mild to moderate (1-2+) tricuspid valve insufficiency. Pulmonary artery systolic pressure is 43 mmHg. Aortic Valve Normal aortic valve. Pulmonic Valve Normal pulmonic valve. Great Vessels Normal aortic root. The pulmonary artery is normal size. Inferior vena cava collapse with respiration. Pericardium/Pleural Small pericardial effusion. MMode/2D Measurements & Calculations LVIDd: 3.7 cm IVSd: 1.1 cm Ao root diam: 2.9 cm LVIDs: 2.0 cm LVPWd: 1.1 cm LA dimension: 4.0 cm RVDd: 2.5 cm FS: 46.2 % LAV(MOD-bp): 32.5 ml LA A4 area: 13.8 cm2 RA A4 area: 12.9 cm2 LAV(MOD-bp) Indexed: 18.4 ml/m2 LAV(MOD-sp2): 38.4 ml LAV(MOD-sp4): 27.0 ml Doppler Measurements & Calculations MV E max juan pablo: 54.6 cm/sec Lat Peak E' Juan Pablo: 6.7 cm/sec Med Peak E' [place]: 5.9 cm/sec E/E' lat: 8.1 E/E' med: 9.3 Ao V2 max: 190.1 cm/sec AI max juan pablo: 412.5 cm/sec LV V1 max: 112.8 cm/sec Ao max P.4 mmHg AI max P.1 mmHg LV V1 max P.1 mmHg Ao V2 mean: 136.1 cm/sec AI dec slope: 207.0 cm/sec2 Ao mean P.1 mmHg AI P1/2t: 583.6 msec Ao V2 VTI: 38.6 cm PA V2 max: 124.1 cm/sec TR max juan pablo: 310.1 cm/sec TR max P.5 mmHg Interpretation Summary Normal LV size. Left ventricular systolic function is normal. The estimated ejection fraction is 60 %. No evidence for diastolic dysfunction. Pulmonary artery systolic pressure is 43 mmHg. Small pericardial effusion. Ordering Physician: Vito Piña Referring Physician: Daisha Bryant Performed By: Aimee Stroud, FLAQUITOCS, RVT
--- NOTE | 2017-05-13 10:05 | PCM.CONS.B ---
Problem List (1) Volume overload Status: Acute (2) Cancer of pancreas, body Status: Chronic - Consult Date of Consult: 05/13/17 - Reason for Consult HPI:~The patient is a 72-year-old female who in August 2016 developed regurgitation, loss of appetite and weight loss. Several weeks later she developed painless jaundice. She underwent evaluation at [facility]. She apparently underwent ERCP with stent placement. I don't have the official report of that procedure but several of the nodes reference that she had brushings from the bile duct there were concerning for adenocarcinoma. ? CT scan of the chest, abdomen and pelvis performed on 08/30/2016 (by report only. Images not currently available) demonstrated that the lungs were free of infiltrate and pleural effusion. There was pleural thickening and plaquing noted in the left hemithorax. Heart was mildly enlarged. There was no significant mediastinal adenopathy. Images of the abdomen demonstrated that there was a common bile duct stent in place. Mild intra-and extra hepatic biliary dilation was noted. Pneumobilia was present left pedicle of consistent with the PCA adjuvant dictation. Large gallstones were present in the gallbladder lumen the wall was normal. Spleen was normal in size pancreas was predominantly atrophic. Pancreatic duct appeared chronically dilated with no discrete pancreatic masses appreciated. ? She underwent attempted exploratory laparotomy with possible pancreaticoduodenectomy on 09/19/2016. The procedure was aborted when it was noted that her creatinine had elevated to 2.69 mg/dL with hyponatremia at 128 mmol per liter. She received hydration and with correction of serum creatinine, she was able to undergo Whipple surgery on 09/22/2016 at [facility]. She also had repair of posterior lateral wall the portal vein due to pancreatic mass involving. Histologic invasion into PV wall. ? She developed postoperative atrial fibrillation with rapid ventricular response. ? The final pathology demonstrated that the gallbladder specimen showed chronic cholecystitis and cholelithiasis. 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 The tumor invaded the ampulla Vater or sphincter Garcia and invaded the peripancreatic soft tissue. One margin, the pancreatic neck/parenchymal margin was noted as positive for pancreatic high-grade intraepithelial neoplasia. The uncinate margin was uninvolved. Bile duct margin was negative. Proximal margin (gastric or duodenal wall) was negative. Distal margin (distal duodenal or jejunal) margin was negative. No lymphovascular invasion was identified. Perineural invasion was not identified. 4 lymph nodes were retrieved. All were negative for disease. There is a supplemental report that show additional sections of the vascular bed demonstrates focal invasion of the ductal carcinoma into the media of a large blood vessel. She has been receiving adjuvant gemcitabine since November 2016. She has been getting lower doses on a more protracted schedule secondary to significant hematologic toxicity requiring multiple blood transfusions. Workup has been negative for GI blood loss. Over the last several weeks she's developed progressive worsening swelling and edema of the lower extremities in association with more nausea and shortness of breath. On exam yesterday in the office she was found to have evidence of right-sided pleural effusion. She was sent to the emergency room. CT scans demonstrated small bilateral pleural effusions with patchy infiltrative findings in the lungs. Patient had been coughing but getting up clear sputum with no fevers in the last several weeks. Her appetite has been declining. There was no evidence of recurrent malignancy on CT scans but CA-19-9 has been increasing. She was admitted and started on IV furosemide. She has been diuresing. This morning she reports she's feeling slightly better. She is down to 1 L of oxygen via nasal cannula. Legs are a little softer around the calves and ankles but overall she feels the swelling is about the same. She's not having any abdominal pain but she continues to have nausea and occasional vomiting when she tries to eat. She is also been having loose stools. Allergies bacitracin [From Neosporin ([id number])] Allergy (Verified 05/12/17 12:34) Rash neomycin [From Neosporin ([id number])] Allergy (Verified 05/12/17 12:34) Rash polymyxin B [From Neosporin ([id number])] Allergy (Verified 05/12/17 12:34) Rash Current Medications Acetaminophen (Tylenol) 650 mg PO Q6H PRN PRN PRN Reason: Mild Pain (1-3)/Temp > 100.7 F Albuterol Sulfate (Ventolin Aerosols) 2.5 mg INHALATION TID.RT [facility] Last Admin: 05/13/17 07:01 Dose: 2.5 mg Aspirin (Ecotrin) 81 mg PO DAILY@0800 [facility] Last Admin: 05/13/17 08:23 Dose: 81 mg Atorvastatin Calcium (Lipitor) 40 mg PO DAILY [facility] Last Admin: 05/13/17 10:24 Dose: 40 mg Furosemide (Lasix) 20 mg IV Q8 [facility] Last Admin: 05/13/17 05:57 Dose: 20 mg Glipizide (Glucotrol) 5 mg PO BIDAC [facility] Last Admin: 05/13/17 08:22 Dose: 5 mg Heparin Sodium (Porcine) (Heparin Na) 5,000 unit SC Q8 [facility] Last Admin: 05/13/17 05:57 Dose: 5,000 u Insulin Aspart (Novolog Flexpen (Bkc)) 0 units SC ACHS [facility] PRN Reason: Protocol Last Admin: 05/13/17 06:47 Dose: Not Given Magnesium Hydroxide (Milk Of Magnesia) 30 ml PO DAILY PRN PRN PRN Reason: Constipation Magnesium Oxide (Mag-Ox 400) 400 mg PO BID [facility] Last Admin: 05/13/17 10:24 Dose: 400 mg Potassium Chloride (K-Dur) 20 meq PO DAILY@0800 [facility] Last Admin: 05/13/17 08:22 Dose: 20 meq PHYSICAL EXAM: Vitals: Vital Signs Temp 98.8 F 05/13/17 08:00 Pulse 84 05/13/17 08:00 Resp 18 05/13/17 08:00 BP 154/68 H 05/13/17 08:00 Pulse Ox 93 05/13/17 08:00 Intake & Output 05/11/17 05/12/17 05/13/17 23:59 23:59 23:59 Intake Total 697 / 697 345 / 345 Output Total 700 / 700 1300 / 1300 Balance -3 / -3 -955 / -955 Weight: 72.439 kg 70.76 kg Intake: Oral 250 / 250 IV fluid/meds 141 / 141 Blood Product 306 / 306 345 / 345 Leuko-Reduced Red Blood Cells 306 / 306 Unit [id number] Leuko-Reduced Red Blood Cells 0 / 0 345 / 345 Unit [id number] Output: Urine 700 / 700 1300 / 1300 Other: Number of Voids 2 Number of Bowel Movements 1 Well-appearing and in no acute distress. EYES: Sclerae are anicteric bilaterally. NECK: Supple. LYMPHATIC: There is no palpable cervical, supraclavicular adenopathy. RESPIRATORY: the breath sounds are significantly diminished in all alston and are absent at the right base. CARDIOVASCULAR: Rhythm is regular. ABDOMEN: The abdomen is nondistended. No tenderness. Extremities: symmetric swelling and pitting edema of the legs. SKIN: No jaundice or rash. ASSESSMENT/PLAN: 1) Volume overload. Assessment: -BNP somewhat elevated. Previous echocardiogram suggested diastolic dysfunction. -She is responding to higher doses of intravenous furosemide. -She also has underlying chronic kidney disease secondary to diabetes. -Unclear significance of the pulmonary infiltrates but this is not typical pulmonary toxicity from gemcitabine which would be expected to cause a more diffuse pneumonitis with hypoxemia and no evidence of volume overload. -Discussed with patient and daughter that she will likely require higher doses of furosemide as an outpatient or rotation to [facility]. Plan: -Continue IV diuresis and monitoring of eyes and nose. -Echocardiogram. 2) Pancreas cancer. Assessment: -High risk pancreas cancer with positive vascular margin. -Poor tolerance to adjuvant single agent chemotherapy secondary to hematologic toxicity. -I reviewed the results of the CT scans in detail with the patient and her daughter. There is no clear radiographic evidence of recurrence but the recent trend in CA-19-9 suggests underlying occult disease. She will not tolerate an escalation in cytotoxic chemotherapy. Plan: -Plan to monitor off chemotherapy with repeat CT scans in about 8-12 weeks. -Will consult palliative care as outpatient.
--- NOTE | 2017-05-13 10:08 | CON.PCM_ITS ---
Problem List (1) Volume overload Status: Acute (2) Cancer of pancreas, body Status: Chronic - Consult Date of Consult: 05/13/17 - Reason for Consult HPI:~The patient is a 72-year-old female who in August 2016 developed regurgitation, loss of appetite and weight loss. Several weeks later she developed painless jaundice. She underwent evaluation at [facility]. She apparently underwent ERCP with stent placement. I don't have the official report of that procedure but several of the nodes reference that she had brushings from the bile duct there were concerning for adenocarcinoma. ? CT scan of the chest, abdomen and pelvis performed on 08/30/2016 (by report only. Images not currently available) demonstrated that the lungs were free of infiltrate and pleural effusion. There was pleural thickening and plaquing noted in the left hemithorax. Heart was mildly enlarged. There was no significant mediastinal adenopathy. Images of the abdomen demonstrated that there was a common bile duct stent in place. Mild intra-and extra hepatic biliary dilation was noted. Pneumobilia was present left pedicle of consistent with the [employer] adjuvant dictation. Large gallstones were present in the gallbladder lumen the wall was normal. Spleen was normal in size pancreas was predominantly atrophic. Pancreatic duct appeared chronically dilated with no discrete pancreatic masses appreciated. ? She underwent attempted exploratory laparotomy with possible pancreaticoduodenectomy on 09/19/2016. The procedure was aborted when it was noted that her creatinine had elevated to 2.69 mg/dL with hyponatremia at 128 mmol per liter. She received hydration and with correction of serum creatinine, she was able to undergo Whipple surgery on 09/22/2016 at [facility]. She also had repair of posterior lateral wall the portal vein due to pancreatic mass involving. Histologic invasion into PV wall. ? She developed postoperative atrial fibrillation with rapid ventricular response. ? The final pathology demonstrated that the gallbladder specimen showed chronic cholecystitis and cholelithiasis. 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 The tumor invaded the ampulla Vater or sphincter Garcia and invaded the peripancreatic soft tissue. One margin, the pancreatic neck/parenchymal margin was noted as positive for pancreatic high-grade intraepithelial neoplasia. The uncinate margin was uninvolved. Bile duct margin was negative. Proximal margin (gastric or duodenal wall) was negative. Distal margin (distal duodenal or jejunal) margin was negative. No lymphovascular invasion was identified. Perineural invasion was not identified. 4 lymph nodes were retrieved. All were negative for disease. There is a supplemental report that show additional sections of the vascular bed demonstrates focal invasion of the ductal carcinoma into the media of a large blood vessel. She has been receiving adjuvant gemcitabine since November 2016. She has been getting lower doses on a more protracted schedule secondary to significant hematologic toxicity requiring multiple blood transfusions. Workup has been negative for GI blood loss. Over the last several weeks she's developed progressive worsening swelling and edema of the lower extremities in association with more nausea and shortness of breath. On exam yesterday in the office she was found to have evidence of right- sided pleural effusion. She was sent to the emergency room. CT scans demonstrated small bilateral pleural effusions with patchy infiltrative findings in the lungs. Patient had been coughing but getting up clear sputum with no fevers in the last several weeks. Her appetite has been declining. There was no evidence of recurrent malignancy on CT scans but CA-19-9 has been increasing. She was admitted and started on IV furosemide. She has been diuresing. This morning she reports she's feeling slightly better. She is down to 1 L of oxygen via nasal cannula. Legs are a little softer around the calves and ankles but overall she feels the swelling is about the same. She's not having any abdominal pain but she continues to have nausea and occasional vomiting when she tries to eat. She is also been having loose stools. Allergies bacitracin [From Neosporin ([id number])] Allergy (Verified 05/12/17 12:34) Rash neomycin [From Neosporin ([id number])] Allergy (Verified 05/12/17 12:34) Rash polymyxin B [From Neosporin ([id number])] Allergy (Verified 05/12/17 12:34) Rash Current Medications Acetaminophen (Tylenol) 650 mg PO Q6H PRN PRN PRN Reason: Mild Pain (1-3)/Temp > 100.7 F Albuterol Sulfate (Ventolin Aerosols) 2.5 mg INHALATION TID.RT COUNTS INCLUDE 234 BEDS AT THE [facility] Last Admin: 05/13/17 07:01 Dose: 2.5 mg Aspirin (Ecotrin) 81 mg PO DAILY@0800 COUNTS INCLUDE 234 BEDS AT THE [facility] Last Admin: 05/13/17 08:23 Dose: 81 mg Atorvastatin Calcium (Lipitor) 40 mg PO DAILY COUNTS INCLUDE 234 BEDS AT THE [facility] Last Admin: 05/13/17 10:24 Dose: 40 mg Furosemide (Lasix) 20 mg IV Q8 COUNTS INCLUDE 234 BEDS AT THE [facility] Last Admin: 05/13/17 05:57 Dose: 20 mg Glipizide (Glucotrol) 5 mg PO BIDAC COUNTS INCLUDE 234 BEDS AT THE [facility] Last Admin: 05/13/17 08:22 Dose: 5 mg Heparin Sodium (Porcine) (Heparin Na) 5,000 unit SC Q8 COUNTS INCLUDE 234 BEDS AT THE [facility] Last Admin: 05/13/17 05:57 Dose: 5,000 u Insulin Aspart (Novolog Flexpen (Bkc)) 0 units SC ACHS COUNTS INCLUDE 234 BEDS AT THE [facility] PRN Reason: Protocol Last Admin: 05/13/17 06:47 Dose: Not Given Magnesium Hydroxide (Milk Of Magnesia) 30 ml PO DAILY PRN PRN PRN Reason: Constipation Magnesium Oxide (Mag-Ox 400) 400 mg PO BID COUNTS INCLUDE 234 BEDS AT THE [facility] Last Admin: 05/13/17 10:24 Dose: 400 mg Potassium Chloride (K-Dur) 20 meq PO DAILY@0800 COUNTS INCLUDE 234 BEDS AT THE [facility] Last Admin: 05/13/17 08:22 Dose: 20 meq PHYSICAL EXAM: Vitals: Vital Signs Temp 98.8 F 05/13/17 08:00 Pulse 84 05/13/17 08:00 Resp 18 05/13/17 08:00 BP 154/68 H 05/13/17 08:00 Pulse Ox 93 05/13/17 08:00 Intake & Output 05/11/17 05/12/17 05/13/17 23:59 23:59 23:59 Intake Total 697 / 697 345 / 345 Output Total 700 / 700 1300 / 1300 Balance -3 / -3 -955 / -955 Weight: 72.439 kg 70.76 kg Intake: Oral 250 / 250 IV fluid/meds 141 / 141 Blood Product 306 / 306 345 / 345 Leuko-Reduced Red Blood Cells 306 / 306 Unit [id number] Leuko-Reduced Red Blood Cells 0 / 0 345 / 345 Unit [id number] Output: Urine 700 / 700 1300 / 1300 Other: Number of Voids 2 Number of Bowel Movements 1 Well-appearing and in no acute distress. EYES: Sclerae are anicteric bilaterally. NECK: Supple. LYMPHATIC: There is no palpable cervical, supraclavicular adenopathy. RESPIRATORY: the breath sounds are significantly diminished in all alston and are absent at the right base. CARDIOVASCULAR: Rhythm is regular. ABDOMEN: The abdomen is nondistended. No tenderness. Extremities: symmetric swelling and pitting edema of the legs. SKIN: No jaundice or rash. ASSESSMENT/PLAN: 1) Volume overload. Assessment: -BNP somewhat elevated. Previous echocardiogram suggested diastolic dysfunction. -She is responding to higher doses of intravenous furosemide. -She also has underlying chronic kidney disease secondary to diabetes. -Unclear significance of the pulmonary infiltrates but this is not typical pulmonary toxicity from gemcitabine which would be expected to cause a more diffuse pneumonitis with hypoxemia and no evidence of volume overload. -Discussed with patient and daughter that she will likely require higher doses of furosemide as an outpatient or rotation to [facility]. Plan: -Continue IV diuresis and monitoring of eyes and nose. -Echocardiogram. 2) Pancreas cancer. Assessment: -High risk pancreas cancer with positive vascular margin. -Poor tolerance to adjuvant single agent chemotherapy secondary to hematologic toxicity. -I reviewed the results of the CT scans in detail with the patient and her daughter. There is no clear radiographic evidence of recurrence but the recent trend in CA-19-9 suggests underlying occult disease. She will not tolerate an escalation in cytotoxic chemotherapy. Plan: -Plan to monitor off chemotherapy with repeat CT scans in about 8-12 weeks. -Will consult palliative care as outpatient.
[2017-05-13] MEDS: Atorvastatin Calcium 40 MG Tablet PO (10:24)
[2017-05-13] MEDS: Magnesium Oxide 400 MG Tablet PO ×2 (10:24→21:45)
[2017-05-13 11:51] LABS: Bedside Glucose 95 mg/dL (70-110)
--- NOTE | 2017-05-13 14:53 | PCM.PROGNOTE ---
Patient Problems: Active and Suspected Problems Shortness of breath (Acute) Cough (Acute) Volume overload (Acute) Subjective: Patient was seen and examined today, she was able be weaned off oxygen altogether, chest x-ray showed small bilateral pleural effusions today, oncology ordered an echocardiogram on the patient but I do not believe it was done today. I talked at length with both patient's daughters. 1 of the patient's daughters is concerned that the patient is weak, I asked her if she felt the patient was appropriate to go to a detention facility if necessary and she stated that she did not want her mother to go there. I will repeat the patient's chest x-ray tomorrow with bilateral decubitus views in order to ascertain whether there is enough fluid to remove for analysis. - Physical Exam General: Alert, Oriented x3, Cooperative, No apparent distress, Well developed HEENT: Atraumatic, PERRLA, EOMI, Normocephalic Oral: Moist Mucosa Neck: Supple, No JVD, No Nuchal Rigidity, Trachea Midline, Thyroid Normal Size and Texture Lungs: No wheeze, No rales, Diminished - diminished breath sounds at the bases bilaterally Cardiovascular: Regular rate, Regular Rhythm, Normal S1, Normal S2, No murmurs, No Ectopic Activity, PMI Normal, No rub noted, No Gallop Abdomen: Bowel Sounds Present, Soft, Non Tender, Non-Distended, No hernias noted Extremities: Capillary Refill Less than 3 Seconds, Edema - +2 mm edema is noted over the patient's lower legs bilaterally Skin: No rashes, No breakdown Musculoskeletal: No Tenderness to Palpation of Joints or Extremities Neurological: Cranial nerves II-XII grossly intact, Neuro grossly intact, Sensory exam intact to light touch and pain Psych/Mental Status: Normal Affect, Appropriate, Alert and oriented to time, place, person, mood and affect Vital Signs Temp Pulse Resp BP Pulse Ox 98.7 F 99 18 117/67 93 05/13/17 14:42 05/13/17 14:42 05/13/17 14:42 05/13/17 14:42 05/13/17 14:42 Oxygen Flow Rate (L/min) 1 Oxygen Delivery Method Room Air Weight: 70.76 kg Body Mass Index (BMI) 27.3 Intake and Output for Last 24 Hours 05/11/17 05/12/17 05/13/17 23:59 23:59 23:59 Intake Total 697 / 697 845 / 845 Output Total 700 / 700 1750 / 1750 Balance -3 / -3 -905 / -905 Laboratory Tests Past 24 Hrs 05/12/17 05/13/17 05/13/17 17:35 05:50 05:50 WBC 4.3 L RBC 2.85 L Hgb 9.7 L Hct 28.3 L MCV 99.3 H MCH 34.0 H MCHC 34.3 RDW 18.9 H RDW Differential 62.6 H Plt Count 172 MPV 9.9 Immature Gran % (Auto) 0.900 Neut % (Auto) 70.7 H Lymph % (Auto) 15.[address] [place] % (Auto) 12.7 H Eos % (Auto) 0.2 Baso % (Auto) 0.2 Absolute Neuts (auto) 3.0 Absolute Lymphs (auto) 0.65 L Total Counted Not Reportable Sodium 140 Potassium 4.2 Chloride 109 H Carbon Dioxide 23.0 Anion Gap 8 BUN 18 Creatinine 1.29 H Estim Creat Clear Calc 33.04 Est GFR (MDRD) Af Amer 52 L Est GFR (MDRD) Non-Af 43 L BUN/Creatinine Ratio 14.0 Glucose 88 Calcium 7.7 L Blood Type O POSITIVE Antibody Screen NEGATIVE Crossmatch See Detail POC Glucose 05/13/17 05/13/17 05/12/17 11:33 06:44 21:31 POC Glucose 95 101 108 Assessment/Plan Active and Suspected Problems Shortness of breath (Acute) Cough (Acute) Volume overload (Acute) #1 hypoxia-secondary to bilateral pleural effusions-resolved #2 bilateral pleural effusions-etiology unclear at this point, patient appears to be responding to IV Lasix, I think the most likely diagnosis on this patient is diastolic congestive heart failure, echocardiogram last year showed a normal EF with mild pulmonary hypertension #3 chronic anemia-exact etiology unclear, hemoglobin today is improved #4 history of pancreatic cancer-recently patient's CA 19 antigen levels have risen, CAT scan of the abdomen does not show any evidence of recurrent cancer however #5 patchy lung infiltrates bilaterally-etiology of this is unknown at this time, today's chest x-ray does not mention any itchy areas of infiltrate, only moderate cardiomegaly and small bilateral pleural effusions. There is noted to be an area of what is felt to be atelectasis at the right lower lung # 6 type 2 diabetes-patient's medication will be continued from home, fingerstick blood sugars will be monitored and sliding scale insulin will be given per protocol I will hold the patient's lisinopril for now due to the fact we will be giving IV diuresis Code Visit Inpatient E&M: 77914 Subs Hosp L2
--- NOTE | 2017-05-13 15:04 | PN_ITS ---
Patient Problems: Active and Suspected Problems Shortness of breath (Acute) Cough (Acute) Volume overload (Acute) Subjective: Patient was seen and examined today, she was able be weaned off oxygen altogether, chest x-ray showed small bilateral pleural effusions today, oncology ordered an echocardiogram on the patient but I do not believe it was done today. I talked at length with both patient's daughters. 1 of the patient 's daughters is concerned that the patient is weak, I asked her if she felt the patient was appropriate to go to a care home facility if necessary and she stated that she did not want her mother to go there. I will repeat the patient's chest x-ray tomorrow with bilateral decubitus views in order to ascertain whether there is enough fluid to remove for analysis. - Physical Exam General: Alert, Oriented x3, Cooperative, No apparent distress, Well developed HEENT: Atraumatic, PERRLA, EOMI, Normocephalic Oral: Moist Mucosa Neck: Supple, No JVD, No Nuchal Rigidity, Trachea Midline, Thyroid Normal Size and Texture Lungs: No wheeze, No rales, Diminished - diminished breath sounds at the bases bilaterally Cardiovascular: Regular rate, Regular Rhythm, Normal S1, Normal S2, No murmurs, No Ectopic Activity, PMI Normal, No rub noted, No Gallop Abdomen: Bowel Sounds Present, Soft, Non Tender, Non-Distended, No hernias noted Extremities: Capillary Refill Less than 3 Seconds, Edema - +2 mm edema is noted over the patient's lower legs bilaterally Skin: No rashes, No breakdown Musculoskeletal: No Tenderness to Palpation of Joints or Extremities Neurological: Cranial nerves II-XII grossly intact, Neuro grossly intact, Sensory exam intact to light touch and pain Psych/Mental Status: Normal Affect, Appropriate, Alert and oriented to time, place, person, mood and affect Vital Signs Temp Pulse Resp BP Pulse Ox 98.7 F 99 18 117/67 93 05/13/17 14:42 05/13/17 14:42 05/13/17 14:42 05/13/17 14:42 05/13/17 14:42 Oxygen Flow Rate (L/min) 1 Oxygen Delivery Method Room Air Weight: 70.76 kg Body Mass Index (BMI) 27.3 Intake and Output for Last 24 Hours 05/11/17 05/12/17 05/13/17 23:59 23:59 23:59 Intake Total 697 / 697 845 / 845 Output Total 700 / 700 1750 / 1750 Balance -3 / -3 -905 / -905 Laboratory Tests Past 24 Hrs 05/12/17 05/13/17 05/13/17 17:35 05:50 05:50 WBC 4.3 L RBC 2.85 L Hgb 9.7 L Hct 28.3 L MCV 99.3 H MCH 34.0 H MCHC 34.3 RDW 18.9 H RDW Differential 62.6 H Plt Count 172 MPV 9.9 Immature Gran % (Auto) 0.900 Neut % (Auto) 70.7 H Lymph % (Auto) 15.3 L [place] % (Auto) 12.7 H Eos % (Auto) 0.2 Baso % (Auto) 0.2 Absolute Neuts (auto) 3.0 Absolute Lymphs (auto) 0.65 L Total Counted Not Reportable Sodium 140 Potassium 4.2 Chloride 109 H Carbon Dioxide 23.0 Anion Gap 8 BUN 18 Creatinine 1.29 H Estim Creat Clear Calc 33.04 Est GFR (MDRD) Af Amer 52 L Est GFR (MDRD) Non-Af 43 L BUN/Creatinine Ratio 14.0 Glucose 88 Calcium 7.7 L Blood Type O POSITIVE Antibody Screen NEGATIVE Crossmatch See Detail POC Glucose 05/13/17 05/13/17 05/12/17 11:33 06:44 21:31 POC Glucose 95 101 108 Assessment/Plan Active and Suspected Problems Shortness of breath (Acute) Cough (Acute) Volume overload (Acute) #1 hypoxia-secondary to bilateral pleural effusions-resolved #2 bilateral pleural effusions-etiology unclear at this point, patient appears to be responding to IV Lasix, I think the most likely diagnosis on this patient is diastolic congestive heart failure, echocardiogram last year showed a normal EF with mild pulmonary hypertension #3 chronic anemia-exact etiology unclear, hemoglobin today is improved #4 history of pancreatic cancer-recently patient's CA 19 antigen levels have risen, CAT scan of the abdomen does not show any evidence of recurrent cancer however #5 patchy lung infiltrates bilaterally-etiology of this is unknown at this time , today's chest x-ray does not mention any itchy areas of infiltrate, only moderate cardiomegaly and small bilateral pleural effusions. There is noted to be an area of what is felt to be atelectasis at the right lower lung # 6 type 2 diabetes-patient's medication will be continued from home, fingerstick blood sugars will be monitored and sliding scale insulin will be given per protocol I will hold the patient's lisinopril for now due to the fact we will be giving IV diuresis Code Visit Inpatient E&M: [id number] Subs Hosp L2
[2017-05-13 17:11] LABS: Bedside Glucose 115 mg/dL (70-110)
[2017-05-13 22:41] LABS: Bedside Glucose 85 mg/dL (70-110)
[2017-05-14] VITALS (13 sets, daily range): BP systolic 104–124; BP diastolic 57–66; PULSE 83–98; RESP 15–28; TEMP 36.7–37.8; O2SAT 90–97
[2017-05-14 06:41] LABS: Bedside Glucose 73 mg/dL (70-110)
[2017-05-14] MEDS: Furosemide 20 MG/2 ML VIAL IV ×4 (06:42→21:53)
[2017-05-14] MEDS: Albuterol 2.5 MG/3 ML VIAL.NEB. INHALATION ×3 (07:42→18:51)
[2017-05-14] MEDS: Aspirin E.C. 81 MG Tablet PO (07:55)
--- NOTE | 2017-05-14 08:20 | RAD_ITS ---
STUDY: X-RAY CHEST REASON FOR EXAM: Female, 72 years old. Pleural effusion pancreatic cancer TECHNIQUE: Complete chest, minimum of four views COMPARISON: May 13 2017 chest x-ray, May 12, 2017 CT scan abdomen pelvis with lung windows., CT scan chest May 12, 2017 FINDINGS: There are persistent bilateral moderate volume effusions with the patient in a right decubitus position layering. With the patient left lateral decubitus position with the fluid layering. There is a left-sided Port-A-Cath with the tip in the superior vena cava. Compared to prior study August 25, 2016, there is stable nodule left upper lobe measuring 5 mm and 3 mm compatible with prior granulomatous disease. There is similar appearing 1 to 2 mm nodular density in the right midlung zone. There is mild cardiac enlargement. Normal mediastinum and ancelmo. Normal visualized pulmonary arteries. There is atherosclerotic calcification of the aortic arch with tortuosity. There are diffuse degenerative changes of the visualized thoracic spine. Normal visualized ribs, clavicles, and shoulders. There is no demonstrated abnormality of the visualized soft tissue structures of the upper abdomen. RAD/Chest Min 4 Views IMPRESSION: Persistent moderate volume bilateral pleural effusions. Mild cardiomegaly Evidence of old granulomatous disease. . Electronically Signed: Missy Walter MD at 8:59 EDT Tel , Service support ,
[2017-05-14 09:11] LABS: Bedside Glucose 73 mg/dL (70-110)
--- NOTE | 2017-05-14 09:51 | NURSING ---
PT WAS 86% ON RA BEFORE AND AFTER AMBULATION. 2LNC APPLIED AND SPO2 INCREASED TO 94%. WILL CONTINUE TO MONITOR.
--- NOTE | 2017-05-14 10:21 | PCM.PROGNOTE ---
Patient Problems: Active and Suspected Problems Shortness of breath (Acute) Cough (Acute) Volume overload (Acute) Subjective: On 1 lpm O2. No chest pain. Cough with deep breaths. Occasional clear sputum. No wheezing. No fever. Poor appetite. Occasional n/v. - Physical Exam General: Alert Lungs: - - Decreased inspiratory breath sounds all throughout. Absent right base. Cardiovascular: Regular Rhythm Abdomen: Soft Extremities: - - Less swelling right leg. Both softer/less edema. Vital Signs Temp Pulse Resp BP Pulse Ox 98.1 F 96 20 H 119/65 93 05/14/17 09:43 05/14/17 09:43 05/14/17 09:43 05/14/17 09:43 05/14/17 09:43 Oxygen Flow Rate (L/min) 2 Oxygen Delivery Method Nasal Cannula Weight: 70.3 kg Body Mass Index (BMI) 27.3 Intake and Output for Last 24 Hours 05/12/17 05/13/17 05/15/17 23:59 23:59 00:59 Intake Total 697 / 697 845 / 845 250 / 250 Output Total 700 / 700 2400 / 2400 700 / 700 Balance -3 / -3 -1555 / -1555 -450 / -450 POC Glucose 05/14/17 05/14/17 05/13/17 07:52 06:37 21:51 POC Glucose 73 73 85 05/13/17 05/13/17 17:02 11:33 POC Glucose 115 H 95 Assessment/Plan Active and Suspected Problems Shortness of breath (Acute) Cough (Acute) Volume overload (Acute) 1) Volume overload. Assessment: -Previous echocardiogram suggested diastolic dysfunction. -Initially responded to higher doses of intravenous furosemide. -Weight now same. -She also has underlying chronic kidney disease secondary to diabetes. -Unclear significance of the pulmonary infiltrates but this is not typical pulmonary toxicity from gemcitabine which would be expected to cause a more diffuse pneumonitis with hypoxemia and no evidence of volume overload. -Still has cough. Plan: -Continue IV diuresis and monitoring of Is/Os. -Echocardiogram tomorrow. -US guided thoracentesis tomorrow to rule out malignant effusion. -Would consider pulmonary consultation as well. 2) Pancreas cancer. Assessment: -High risk pancreas cancer with positive vascular margin. -Poor tolerance to adjuvant single agent chemotherapy secondary to hematologic toxicity. -There is no clear radiographic evidence of recurrence but the recent trend in CA-19-9 suggests underlying occult disease. She will not tolerate an escalation in cytotoxic chemotherapy. Plan: -Will consult palliative care as outpatient. -However, hospice indicted if malignant effusion.
[2017-05-14] MEDS: Atorvastatin Calcium 40 MG Tablet PO (10:44)
[2017-05-14] MEDS: Magnesium Oxide 400 MG Tablet PO ×2 (10:44→21:52)
[2017-05-14 10:56] LABS: Bedside Glucose 93 mg/dL (70-110)
[2017-05-14] MEDS: Glucerna Shake 120 ML LIQUID PO ×3 (13:45→21:52)
--- NOTE | 2017-05-14 14:31 | PCM.PROGNOTE ---
Patient Problems: Active and Suspected Problems Shortness of breath (Acute) Cough (Acute) Volume overload (Acute) Subjective: Patient was seen and examined today, I talked at length with her and her daughters were both in the room today. Patient has continued bilateral pleural effusions right greater than left, I talked with oncology and they feel that it would be prudent to do a thoracentesis tomorrow on the right side to obtain fluid for cytology to exclude recurrent pancreatic cancer. Patient's lower leg edema as improved somewhat but is still present, patient will have an echocardiogram tomorrow. - Physical Exam General: Alert, Oriented x3, Cooperative, No apparent distress, Well developed, Well nourished HEENT: Atraumatic, PERRLA, EOMI, Normocephalic Oral: Moist Mucosa Neck: Supple, No JVD, Trachea Midline, Thyroid Normal Size and Texture Lungs: Normal air movement, No rhonchi, No wheeze, Diminished - Diminished breath sounds are noted over the right lower lung field, Rales - Inspiratory rales are noted at the lung bases bilaterally Cardiovascular: Regular rate, Regular Rhythm, Normal S1, Normal S2, No murmurs, No Ectopic Activity, PMI Normal, No rub noted, No Gallop Abdomen: Bowel Sounds Present, Soft, Non Tender, Non-Distended, No hernias noted Extremities: No clubbing, No cyanosis, Capillary Refill Less than 3 Seconds, Edema - +2 mm pitting edema is noted over the lower legs bilaterally Skin: No rashes, No breakdown Neurological: Cranial nerves II-XII grossly intact, Neuro grossly intact, Muscle tone normal, Sensory exam intact to light touch and pain Psych/Mental Status: Normal Affect, Appropriate, Alert and oriented to time, place, person, mood and affect Vital Signs Temp Pulse Resp BP Pulse Ox 98.1 F 86 16 119/65 95 05/14/17 09:43 05/14/17 13:23 05/14/17 13:23 05/14/17 09:43 05/14/17 13:24 Oxygen Flow Rate (L/min) 2 Oxygen Delivery Method Nasal Cannula Weight: 70.3 kg Body Mass Index (BMI) 27.3 Intake and Output for Last 24 Hours 05/12/17 05/13/17 05/15/17 23:59 23:59 00:59 Intake Total 697 / 697 845 / 845 730 / 730 Output Total 700 / 700 2400 / 2400 1100 / 1100 Balance -3 / -3 -1555 / -1555 -370 / -370 Laboratory Tests Past 24 Hrs 05/14/17 05/14/17 14:05 14:05 APTT Pending Lactate Dehydrogenase Pending POC Glucose 05/14/17 05/14/17 05/14/17 10:42 07:52 06:37 POC Glucose 93 73 73 05/13/17 05/13/17 21:51 17:02 POC Glucose 85 115 H Assessment/Plan Active and Suspected Problems Shortness of breath (Acute) Cough (Acute) Volume overload (Acute) #1 hypoxia-secondary to bilateral pleural effusions-patient remains on O2 at this time #2 bilateral pleural effusions-etiology unclear at this point, patient appears to be responding to IV Lasix in part, patient may have a component of diastolic congestive heart failure or she may have recurrent pancreatic cancer with malignant pleural effusions. Patient will undergo a right thoracentesis tomorrow, I will give her an extra dose of IV Lasix today #3 chronic anemia-exact etiology unclear, recheck CBC tomorrow #4 history of pancreatic cancer-recently patient's CA 19 antigen levels have risen, CAT scan of the abdomen does not show any evidence of recurrent cancer however # 5 type 2 diabetes-patient's medication will be continued from home, fingerstick blood sugars will be monitored and sliding scale insulin will be given per protocol Code Visit Inpatient E&M: 91598 Subs Hosp L2
[2017-05-14 14:37] LABS: Partial Thromboplast Time 42.8 Seconds (24.1-36.2)
[2017-05-14 14:39] LABS: LDH 272 U/L (84-246)
[2017-05-14 16:16] LABS: Bedside Glucose 149 mg/dL (70-110)
[2017-05-14] MEDS: Acetaminophen 325 MG Tablet 650 MG PO (22:08)
[2017-05-14 22:17] LABS: Bedside Glucose 101 mg/dL (70-110)
[2017-05-15] VITALS (10 sets, daily range): BP systolic 107–134; BP diastolic 47–107; PULSE 77–100; RESP 18–20; TEMP 36.8–37.6; O2SAT 93–99
--- NOTE | 2017-05-15 | FLU_PTH ---
PATIENT: KARINA BILLINGS LOC: MS3 U#:[id number] AGE/SX: 72/F ROOM: [facility] RE05/12/[address]: Dr. Bo Alston MD : 1945 BED: 1 DIS: 05/17/2017 SPEC #: [id number] RECD: 05/16/17 09:32 STATUS: MELANI JAVI #: [id number] GENEVIEVE: 05/15/17 00:[address]: Bo Alston DEPT: CYTOLOGY RECD BY: Srinath Rodgers ENTERED: 05/16/17 09:33 SP TYPE: Fluid OTHR DR: MD Dr. Wenceslao Bryant, DO Dr. Vito Piña DO Tissues: THORACIC FLUID Procedures: Pap Stain (control) Special Stain Group II Surgery Specimen Level IV Cell Block Cytospin Fluid HEADER OPERATION: Ultrasound-guided right thoracentesis PRE-OP DIAGNOSIS: Hypoxia, pleural effusions, anasarca TISSUE SUBMITTED: Thoracentesis fluid for cytology DIAGNOSIS CYTOLOGY Thoracentesis fluid for cytology (cytospin and cell block): Negative for malignant cells. AM:lainey 05/17/17 CYTOLOGY STUDY Slides are reviewed. CYTOLOGY GROSS Received is 90 ml of cloudy, ford fluid labeled with the patient's name and and designated per the requisition as thoracentesis. Submitted for cytology preparation including cell block. 05/16/17 TC:5 CPT: 26935, 27925
[2017-05-15 05:29] LABS: Absolute Lymphocyte Count 0.64 X10^3/ul (0.83-4.51); Absolute Neutrophil Count 2.9 X10^3/uL (2.0-7.7); Eosinophil# 0.03 X10^3/uL; Eosinophils% 0.7 % (0-5); Hematocrit 30.4 % (37-47); Lymphocyte # 0.64 X10^3/ul (4.0); Lymphocyte % 15.2 % (19-41); Mean Corp Hgb Conc 32.9 g/gl (32-36); Mean Corpuscular Hgb 32.8 pg (27.0-32.0); Mean Corpuscular Volume 99.7 fL (81-99); Mean Platelet Vol. 9.7 fl (6.2-12.0); Monocyte# 0.58 X10^3/uL; Monocyte% 13.8 % (0-10); Neutrophil # 2.93 X10^3/uL (2.7-7.7); Neutrophil % 69.8 % (47-70); Platelet Count 214 K/mm3 (150-450); RBC Distribution Width CV 19.7 % (11.6-14.6); RBC Distribution Width SD 67.8 fl (35.1-43.9); Red Blood Count 3.05 M/mm3 (4.2-5.4); White Blood Count 4.2 K/mm3 (4.4-11.0)
[2017-05-15 05:41] LABS: Differential Indicated SCAN CRITERIA MET; POSITIVE COUNT NO; POSITIVE DIFFERENTIAL NO; POSITIVE MORPHOLOGY YES
[2017-05-15] MEDS: 0.9% NaCl Peripheral Flush Adult/Peds IV ×4 (06:02→20:46)
[2017-05-15] MEDS: Furosemide 20 MG/2 ML VIAL IV ×3 (06:03→20:47)
[2017-05-15 06:42] LABS: Anisocytosis 2+; Differential Comment SCANNED; Macrocytosis 1+
[2017-05-15 06:56] LABS: Bedside Glucose 75 mg/dL (70-110)
[2017-05-15] MEDS: Magnesium Oxide 400 MG Tablet PO ×2 (08:04→20:47)
[2017-05-15] MEDS: Atorvastatin Calcium 40 MG Tablet PO (08:05)
[2017-05-15] MEDS: Aspirin E.C. 81 MG Tablet PO (08:05)
[2017-05-15] MEDS: Glucerna Shake 120 ML LIQUID PO ×2 (08:08→15:23)
[2017-05-15 09:40] LABS: ALB/GLOB Ratio 0.9 RATIO (0.9-2.4); Globulin 2.8 g/dL (2.2-4.2); LDH 289 U/L (84-246); Protein, Total 5.4 g/dL (6.4-8.2)
[2017-05-15 10:09] LABS: Prothrombin Time (Protime)PT. 13.4 SECONDS (11.7-14.9)
[2017-05-15 10:10] LABS: Partial Thromboplast Time 46.8 Seconds (24.1-36.2)
--- NOTE | 2017-05-15 12:30 | CASEMGMT ---
Social Work Referral received from RN stating family requesting to see NAN concerning palliative care information. NAN met with pt and dgt Marzena in pt room and introduced self and role of SW. Pt lives with a daughter (not Marzena) in a one story home with one step to enter. She has been independent with ADLs and dgt assists with meal prep and housekeeping. Pt does not currently drive and family assists with this. She does have a Wheeled Walker but has not been using it. NO other DME. She has not previously utilized home health care but was at [facility] in September 2016 for short rehab stay. Demographics confirmed and pt sees Dr. Bryant PCP and Dr. Piña for oncology. [facility] choice. Pt son Camron Navarro is HCPOA and she does have a Living Will. Pt is currently not receiving Chemo, radiation or chemo medications. Pt stating that she feels she needs short term SNF placement to help get her strength back prior to returning to her daughter's home. SW provided written list of SNF's in network with pt insurance. Pt first choice is [facility] [place]. Also provided oral and written information on Palliative care program. Pt is agreeable to meet with palliative care to discuss the program further. NAN spoke with Dr. Alston and he is agreeable to palliative care consult. Referral made to [facility]. Clinical information faxed. Phone call to [facility] [place] and they do have beds available. Referral faxed. Pt made aware that referrals have been sent. Palliative care requesting family to contact to set up appointment. Marzena's name is on the demo sheet and this info provided. NAN informed pt and two dgts who are not in the room that Palliative will contact Marzena to set up a time to meet with pt and that pt can invite any family members she wishes to this appointment. SW will await determination from [facility]. CANDACE Brown
[2017-05-15 12:31] LABS: Bedside Glucose 158 mg/dL (70-110)
--- NOTE | 2017-05-15 14:00 | US_ITS ---
PROCEDURE: ULTRASOUND GUIDED THORACENTESIS. DATE: May 15, 2017. INDICATION: Female, 72 years old. Right pleural effusion. PHYSICIAN: Gab Wang M.D. PROCEDURE: The risks, benefits, and alternatives to the procedure were explained to the patient. The specific risks of bleeding, infection, and pneumothorax requiring chest tube insertion were discussed and accepted. Written informed consent was obtained. Ultrasonographic evaluation of the right lower pleural space was carried out. An adequate pocket was identified. The patient was placed in the sitting, upright position. The overlying skin was prepped and draped in sterile fashion. 1% lidocaine was administered subcutaneously for local anesthesia. Under ultrasound guidance, a 6 Kiswahili thoracentesis needle/catheter system was advanced into the right posterior lower pleural fluid collection. Approximately 470 mL of ford-colored fluid fluid was drained. The catheter was removed, and a sterile dressing was applied. A specimen was collected and sent to the laboratory for analysis, as requested by the referring clinician. The patient tolerated the procedure well. A chest x-ray was ordered. US/Thoracentesis W US IMPRESSION: Ultrasound-guided right thoracentesis. Electronically Signed: Gab Wang MD at 8:04 EDT Tel [phone], Service support ,
--- NOTE | 2017-05-15 14:50 | RAD_ITS ---
STUDY: X-RAY CHEST REASON FOR EXAM: Female, 72 years old. Post thoracentesis. TECHNIQUE: PA inspiration expiration views. COMPARISON: Comparison is made with prior study dated May 14, 2017. FINDINGS: The patient is status post right thoracentesis. There is no evidence of pneumothorax. A left-sided portacatheter is seen with the tip at junction superior vena cava and right atrium. Persistent pleural-parenchymal changes at the lung bases worse on the left side. There is evidence of calcified pleural plaques on the left side. RAD/Chest Insp/Exp 2 View IMPRESSION: Status post right thoracentesis. There is no evidence pneumothorax. Electronically Signed: Gab Wang MD at 15:26 EDT Tel [phone], Service support ,
[2017-05-15 15:20] LABS: Cytology, Body Fluid / CSF SEE PATHOLOGY REPORT
--- NOTE | 2017-05-15 15:53 | PCM.PN.HOSP ---
Patient Problems: Active and Suspected Problems Shortness of breath (Acute) Cough (Acute) Volume overload (Acute) Subjective: Patient has bilateral pleural effusion; right more than left. Patient has history of pancreatic cancer, had last chemotherapy about 2 weeks ago and could not tolerate it because of anemia and decided no further chemotherapy. Patient is weak and mild short of breath. Vitals/I&O's: Vital Signs Temp Pulse Resp BP Pulse Ox 98.3 F 100 18 121/52 H 94 05/15/17 15:35 05/15/17 15:35 05/15/17 15:35 05/15/17 15:35 05/15/17 15:35 Oxygen Flow Rate (L/min) 2 Oxygen Delivery Method Nasal Cannula Weight: 149 lb 3.2 oz Body Mass Index (BMI) 27.3 Intake and Output for Last 24 Hours 05/13/17 05/14/17 05/15/17 22:59 23:59 23:59 Intake Total 260 / 260 Output Total 1850 / 1850 Balance -1590 / -1590 General: Alert, Oriented x3, Cooperative, Lethargic HEENT: Atraumatic, PERRLA, EOMI, Normocephalic Neck: Supple, No JVD, Negative Carotid Bruits Lungs: Diminished, Short of Breath, Wheezes, - - Stony dullness on right side below fifth intercostal space and seventh intercostal space on the left side Cardiovascular: Regular rate, Regular Rhythm, Normal S1, Normal S2, No murmurs Abdomen: Bowel Sounds Present, Soft, Non Tender, Non-Distended Extremities: Capillary Refill Less than 3 Seconds, Edema Skin: No rashes, No breakdown Musculoskeletal: No Tenderness to Palpation of Joints or Extremities Neurological: Cranial nerves II-XII grossly intact Psych/Mental Status: Normal Affect, Appropriate Laboratory Results 05/14/17 14:30: Fluid Glucose Pending, Fluid Total Protein Pending, Fluid LDH Pending 05/14/17 16:04: POC Glucose 149 H 05/14/17 21:50: POC Glucose 101 05/15/17 05:05: WBC 4.2 L, RBC 3.05 L, Hgb 10.0 L, Hct 30.4 L, MCV 99.7 H, MCH 32.8 H, MCHC 32.9, RDW 19.7 H, RDW Differential 67.8 H, Plt Count 214, MPV 9.7, Immature Gran % (Auto) 0.500, Neut % (Auto) 69.8, Lymph % (Auto) 15.2 L, [place] % (Auto) 13.8 H, Eos % (Auto) 0.7, Baso % (Auto) 0.0, Absolute Neuts (auto) 2.9, Absolute Lymphs (auto) 0.64 L, Total Counted Not Reportable, Differential Comment SCANNED, Anisocytosis 2+, Macrocytosis 1+ 05/15/17 05:05: Lactate Dehydrogenase 289 H, Total Protein 5.4 L, Globulin 2.8, Albumin/Globulin Ratio 0.9 05/15/17 06:42: POC Glucose 75 05/15/17 09:45: PT 13.4, INR 1.0, APTT 46.8 H 05/15/17 12:02: POC Glucose 158 H 05/15/17 14:30: Fluid Glucose Cancelled 05/15/17 14:30: Fluid pH Pending 05/15/17 15:15: Fluid Source Pending, Fluid Color Pending, Fluid Appearance Pending, Fluid WBC Pending, Fluid RBC Pending, Fluid Tot Cell Count Pending, Fl Pathologist Comment Pending, Fluid Comment 2 Pending 05/15/17 15:15: Miscellaneous Cytology Pending Current Medications Acetaminophen (Tylenol) 650 mg PO Q6H PRN PRN PRN Reason: Mild Pain (1-3)/Temp > 100.7 F Last Admin: 05/14/17 22:08 Dose: 650 mg Albuterol Sulfate (Ventolin Aerosols) 2.5 mg INHALATION TID.RT [facility] Last Admin: 05/15/17 13:50 Dose: Not Given Aspirin (Ecotrin) 81 mg PO DAILY@0800 [facility] Last Admin: 05/15/17 08:05 Dose: 81 mg Atorvastatin Calcium (Lipitor) 40 mg PO DAILY [facility] Last Admin: 05/15/17 08:05 Dose: 40 mg Furosemide (Lasix) 20 mg IV Q8 [facility] Last Admin: 05/15/17 15:19 Dose: 20 mg Glipizide (Glucotrol) 5 mg PO BIDAC [facility] Last Admin: 05/15/17 15:24 Dose: 5 mg Heparin Sodium (Porcine) (Heparin Na) 5,000 unit SC Q8 [facility] Last Admin: 05/15/17 09:21 Dose: Not Given Insulin Aspart (Novolog Flexpen (Bkc)) 0 units SC ACHS [facility] PRN Reason: Protocol Last Admin: 05/15/17 12:06 Dose: 1 units Magnesium Hydroxide (Milk Of Magnesia) 30 ml PO DAILY PRN PRN PRN Reason: Constipation Magnesium Oxide (Mag-Ox 400) 400 mg PO BID [facility] Last Admin: 05/15/17 08:04 Dose: 400 mg Nutritional Formula (Lactose Free) (Glucerna Shake) 120 ml PO 4X/DAY [facility] Last Admin: 05/15/17 15:23 Dose: 120 ml Potassium Chloride (K-Dur) 20 meq PO DAILY@0800 [facility] Last Admin: 05/15/17 08:05 Dose: 20 meq Sodium Chloride () 5 - 30 ml IV UD PRN PRN Reason: SALINE FLUSH Last Admin: 05/15/17 15:24 Dose: 10 ml Assessment/Plan Active and Suspected Problems Shortness of breath (Acute) Cough (Acute) Volume overload (Acute) This is a 72-year-old female with history of pancreatic cancer with left subclavicular MediPort with last chemotherapy about 2 weeks ago admitted with shortness of breath or cough and hypoxia, 89% on room air and chronic bilateral lower extremity edema, progressively getting worse over of 2 weeks. Patient did not had chest pain. Patient has history of pancreatic cancer status post Whipple's procedure in September 2016 and then on chemotherapy complicated with anemia after chemotherapy. 1. Acute hypoxic respiratory failure secondary to bilateral pleural effusion, right worse than left exact etiology unclear but possible malignant effusion from pancreatic cancer: Patient is admitted on telemetry. On IV Lasix. Patient had ultrasound-guided thoracocentesis today. Fluid chemistry, cell count, cultures and fluid cytology are pending. 2. Patchy bilateral lung infiltrate possible due to atelectasis on superimposed bilateral pleural effusion: 2D echo done shows LV size and systolic function normal with EF 60%. No evidence for diastolic dysfunction. No regional wall motion abnormality. Normal RV size and systolic function. Normal right and left atria. Mild to moderate TR with pulmonary artery systolic pressure of 43 mmHg. Incentive spirometry 3. 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 Hemoglobin improved from 7.9 g percent to 10 g percent. Pancreatic cancer status post Whipple surgery and chemotherapy complicated with pneumonia: Recently patient's CA-19-9 region have risen. Other comorbidities include diabetes mellitus type 2: Accu-Chek before meals and at bedtime. Code Visit Inpatient E&M: 18832 [facility] Hosp L3
[2017-05-15 15:55] LABS: Body Fluid Mononuclear WBC # 0.168 10^3/uL; Body Fluid Mononuclear WBC % 91.8 %; Body Fluid Polynuclear WBC # 0.015 10^3/uL; Body Fluid Polynuclear WBC % 8.2 %; Body Fluid Total Cells Counted 0.215 10^3/ul (0.000-0.000); White Blood Count/Body Fluid 0.183 10^3/uL
--- NOTE | 2017-05-15 16:08 | PN_ITS ---
Patient Problems: Active and Suspected Problems Shortness of breath (Acute) Cough (Acute) Volume overload (Acute) Subjective: Patient has bilateral pleural effusion; right more than left. Patient has history of pancreatic cancer, had last chemotherapy about 2 weeks ago and could not tolerate it because of anemia and decided no further chemotherapy. Patient is weak and mild short of breath. Vitals/I&O's: Vital Signs Temp Pulse Resp BP Pulse Ox 98.3 F 100 18 121/52 H 94 05/15/17 15:35 05/15/17 15:35 05/15/17 15:35 05/15/17 15:35 05/15/17 15:35 Oxygen Flow Rate (L/min) 2 Oxygen Delivery Method Nasal Cannula Weight: 149 lb 3.2 oz Body Mass Index (BMI) 27.3 Intake and Output for Last 24 Hours 05/13/17 05/14/17 05/15/17 22:59 23:59 23:59 Intake Total 260 / 260 Output Total 1850 / 1850 Balance -1590 / -1590 General: Alert, Oriented x3, Cooperative, Lethargic HEENT: Atraumatic, PERRLA, EOMI, Normocephalic Neck: Supple, No JVD, Negative Carotid Bruits Lungs: Diminished, Short of Breath, Wheezes, - - Stony dullness on right side below fifth intercostal space and seventh intercostal space on the left side Cardiovascular: Regular rate, Regular Rhythm, Normal S1, Normal S2, No murmurs Abdomen: Bowel Sounds Present, Soft, Non Tender, Non-Distended Extremities: Capillary Refill Less than 3 Seconds, Edema Skin: No rashes, No breakdown Musculoskeletal: No Tenderness to Palpation of Joints or Extremities Neurological: Cranial nerves II-XII grossly intact Psych/Mental Status: Normal Affect, Appropriate Laboratory Results 05/14/17 14:30: Fluid Glucose Pending, Fluid Total Protein Pending, Fluid LDH Pending 05/14/17 16:04: POC Glucose 149 H 05/14/17 21:50: POC Glucose 101 05/15/17 05:05: WBC 4.2 L, RBC 3.05 L, Hgb 10.0 L, Hct 30.4 L, MCV 99.7 H, MCH 32.8 H, MCHC 32.9, RDW 19.7 H, RDW Differential 67.8 H, Plt Count 214, MPV 9.7, Immature Gran % (Auto) 0.500, Neut % (Auto) 69.8, Lymph % (Auto) 15.2 L, [place] % (Auto) 13.8 H, Eos % (Auto) 0.7, Baso % (Auto) 0.0, Absolute Neuts (auto) 2.9, Absolute Lymphs (auto) 0.64 L, Total Counted Not Reportable, Differential Comment SCANNED, Anisocytosis 2+, Macrocytosis 1+ 05/15/17 05:05: Lactate Dehydrogenase 289 H, Total Protein 5.4 L, Globulin 2.8, Albumin/Globulin Ratio 0.9 05/15/17 06:42: POC Glucose 75 05/15/17 09:45: PT 13.4, INR 1.0, APTT 46.8 H 05/15/17 12:02: POC Glucose 158 H 05/15/17 14:30: Fluid Glucose Cancelled 05/15/17 14:30: Fluid pH Pending 05/15/17 15:15: Fluid Source Pending, Fluid Color Pending, Fluid Appearance Pending, Fluid WBC Pending, Fluid RBC Pending, Fluid Tot Cell Count Pending, Fl Pathologist Comment Pending, Fluid Comment 2 Pending 05/15/17 15:15: Miscellaneous Cytology Pending Current Medications Acetaminophen (Tylenol) 650 mg PO Q6H PRN PRN PRN Reason: Mild Pain (1-3)/Temp > 100.7 F Last Admin: 05/14/17 22:08 Dose: 650 mg Albuterol Sulfate (Ventolin Aerosols) 2.5 mg INHALATION TID.RT [facility] Last Admin: 05/15/17 13:50 Dose: Not Given Aspirin (Ecotrin) 81 mg PO DAILY@0800 [facility] Last Admin: 05/15/17 08:05 Dose: 81 mg Atorvastatin Calcium (Lipitor) 40 mg PO DAILY [facility] Last Admin: 05/15/17 08:05 Dose: 40 mg Furosemide (Lasix) 20 mg IV Q8 [facility] Last Admin: 05/15/17 15:19 Dose: 20 mg Glipizide (Glucotrol) 5 mg PO BIDAC [facility] Last Admin: 05/15/17 15:24 Dose: 5 mg Heparin Sodium (Porcine) (Heparin Na) 5,000 unit SC Q8 [facility] Last Admin: 05/15/17 09:21 Dose: Not Given Insulin Aspart (Novolog Flexpen (Bkc)) 0 units SC ACHS [facility] PRN Reason: Protocol Last Admin: 05/15/17 12:06 Dose: 1 units Magnesium Hydroxide (Milk Of Magnesia) 30 ml PO DAILY PRN PRN PRN Reason: Constipation Magnesium Oxide (Mag-Ox 400) 400 mg PO BID [facility] Last Admin: 05/15/17 08:04 Dose: 400 mg Nutritional Formula (Lactose Free) (Glucerna Shake) 120 ml PO 4X/DAY [facility] Last Admin: 05/15/17 15:23 Dose: 120 ml Potassium Chloride (K-Dur) 20 meq PO DAILY@0800 [facility] Last Admin: 05/15/17 08:05 Dose: 20 meq Sodium Chloride () 5 - 30 ml IV UD PRN PRN Reason: SALINE FLUSH Last Admin: 05/15/17 15:24 Dose: 10 ml Assessment/Plan Active and Suspected Problems Shortness of breath (Acute) Cough (Acute) Volume overload (Acute) This is a 72-year-old female with history of pancreatic cancer with left subclavicular MediPort with last chemotherapy about 2 weeks ago admitted with shortness of breath or cough and hypoxia, 89% on room air and chronic bilateral lower extremity edema, progressively getting worse over of 2 weeks. Patient did not had chest pain. Patient has history of pancreatic cancer status post Whipple's procedure in September 2016 and then on chemotherapy complicated with anemia after chemotherapy. 1. Acute hypoxic respiratory failure secondary to bilateral pleural effusion, right worse than left exact etiology unclear but possible malignant effusion from pancreatic cancer: Patient is admitted on telemetry. On IV Lasix. Patient had ultrasound-guided thoracocentesis today. Fluid chemistry, cell count, cultures and fluid cytology are pending. 2. Patchy bilateral lung infiltrate possible due to atelectasis on superimposed bilateral pleural effusion: 2D echo done shows LV size and systolic function normal with EF 60%. No evidence for diastolic dysfunction. No regional wall motion abnormality. Normal RV size and systolic function. Normal right and left atria. Mild to moderate TR with pulmonary artery systolic pressure of 43 mmHg. Incentive spirometry 3. 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 Hemoglobin improved from 7.9 g percent to 10 g percent. Pancreatic cancer status post Whipple surgery and chemotherapy complicated with pneumonia: Recently patient's CA-19-9 region have risen. Other comorbidities include diabetes mellitus type 2: Accu-Chek before meals and at bedtime. Code Visit Inpatient E&M: [id number] [facility] Hosp L3
[2017-05-15 16:47] LABS: Glucose, Body Fluid 149 mg/dL (40-70); LDH,Body Fluid 132 Units/l (Not Establ.); Protein, Body Fluid 3.1 g/dL (Not Establ.)
[2017-05-15 17:01] LABS: Auto B Fluid Analyzer BKGD Ct COUNTS W/IN LIMITS (W/IN LIMITS); Lymphocytes 63 %; Mesothelial Cells 9 %; Monocytes 25 %; Neutrophil (Segs) 3 %
[2017-05-15 17:02] LABS: Appearance/Body Fluid SL CLDY; Body Fluid QC Type(s) BF1Q; Color/Body Fluid YELLOW; Source- Body Fluid THORACENTESIS
[2017-05-15] MEDS: Albuterol 2.5 MG/3 ML VIAL.NEB. INHALATION (20:00)
[2017-05-15] MEDS: Acetaminophen 325 MG Tablet 650 MG PO (20:46)
[2017-05-15 21:20] LABS: Bedside Glucose 74 mg/dL (70-110)
[2017-05-15 22:31] LABS: Bedside Glucose 105 mg/dL (70-110)
[2017-05-16] VITALS (9 sets, daily range): BP systolic 107–120; BP diastolic 46–57; PULSE 74–92; RESP 16–20; TEMP 36.8–37.2; O2SAT 87–99
[2017-05-16] MEDS: 0.9% NaCl Peripheral Flush Adult/Peds IV ×2 (05:55→05:59)
[2017-05-16] MEDS: Furosemide 20 MG/2 ML VIAL IV ×3 (05:59→22:51)
[2017-05-16 06:08] LABS: Absolute Lymphocyte Count 0.53 X10^3/ul (0.83-4.51); Eosinophil# 0.03 X10^3/uL; Eosinophils% 0.7 % (0-5); Hematocrit 28.6 % (37-47); Hemoglobin 9.4 g/dl (12.0-15.0); Lymphocyte # 0.53 X10^3/ul (4.0); Lymphocyte % 12.4 % (19-41); Mean Corp Hgb Conc 32.9 g/gl (32-36); Mean Corpuscular Hgb 33.1 pg (27.0-32.0); Mean Corpuscular Volume 100.7 fL (81-99); Mean Platelet Vol. 9.7 fl (6.2-12.0); Monocyte# 0.71 X10^3/uL; Monocyte% 16.7 % (0-10); Neutrophil # 2.98 X10^3/uL (2.7-7.7); Platelet Count 228 K/mm3 (150-450); RBC Distribution Width CV 19.4 % (11.6-14.6); RBC Distribution Width SD 66.4 fl (35.1-43.9); Red Blood Count 2.84 M/mm3 (4.2-5.4); White Blood Count 4.3 K/mm3 (4.4-11.0)
[2017-05-16 06:09] LABS: Differential Indicated SCAN CRITERIA MET; POSITIVE COUNT NO; POSITIVE DIFFERENTIAL YES; POSITIVE MORPHOLOGY YES
[2017-05-16 06:21] LABS: Anion Gap 9 (5-15); BUN 25 mg/dL (7-18); Calcium,Total 7.7 mg/dL (8.5-10.1); Chloride 102 mmol/L (98-107); Creatinine, Serum 1.25 mg/dL (0.55-1.02); EST Glomerular Filtration Rate 45 mL/min (>60); Est Glom Filt Rate - Afr Amer 54 mL/min (>60); Glucose 68 mg/dL (74-106); Potassium 3.9 mmol/L (3.5-5.1); Sodium Level 138 mmol/L (136-145)
[2017-05-16 06:51] LABS: Bedside Glucose 78 mg/dL (70-110)
[2017-05-16 06:54] LABS: Anisocytosis 1+; Differential Comment SCAN
[2017-05-16 06:55] LABS: Hypochromasia 1+; Microcytosis 1+; Polychromasia 1+
[2017-05-16] MEDS: Albuterol 2.5 MG/3 ML VIAL.NEB. INHALATION ×2 (07:03→13:27)
--- NOTE | 2017-05-16 08:17 | PCM.PROGNOTE ---
Patient Problems: Active and Suspected Problems Shortness of breath (Acute) Cough (Acute) Volume overload (Acute) Subjective: Patient is feeling better. Not SOB at rest. No chest pain _ non-productive cough No pain, N/V/D. +generalized weakness. Will be d/c to short -term rehabs - Physical Exam General: Alert, Oriented x3 HEENT: Atraumatic, PERRLA, EOMI Oral: Moist Mucosa Neck: Supple Lungs: No wheeze, No rales, Diminished Cardiovascular: Regular rate, Regular Rhythm, Normal S1, Normal S2 Abdomen: Bowel Sounds Present, Soft, Non Tender, Non-Distended Extremities: No clubbing, No cyanosis, Edema - +1edema Skin: No rashes Musculoskeletal: No Tenderness to Palpation of Joints or Extremities Lymphatic: No Cervical, Supraclavicular, or Inguinal Adenopathy Neurological: Neuro grossly intact Psych/Mental Status: Normal Affect Vital Signs Temp Pulse Resp BP Pulse Ox 98.2 F 74 18 107/57 L 94 05/16/17 03:00 05/16/17 07:03 05/16/17 07:03 05/16/17 03:00 05/16/17 07:03 Oxygen Flow Rate (L/min) 2 Oxygen Delivery Method Nasal Cannula Weight: 149 lb 3.2 oz Body Mass Index (BMI) 27.3 Intake and Output for Last 24 Hours 05/14/17 05/15/17 05/16/17 23:59 23:59 23:59 Intake Total 260 / 260 200 / 200 Output Total 2150 / 2150 Balance -1890 / -1890 200 / 200 Microbiology Past 72 Hours 05/15/17 15:15 Gram Stain - Preliminary Fluid - Thoracentesis Fluid Laboratory Tests Past 24 Hrs 05/14/17 05/15/17 05/15/17 14:30 05:05 09:45 WBC RBC Hgb Hct MCV MCH MCHC RDW RDW Differential Plt Count MPV Immature Gran % (Auto) Neut % (Auto) Lymph % (Auto) [place] % (Auto) Eos % (Auto) Baso % (Auto) Absolute Neuts (auto) Absolute Lymphs (auto) Total Counted Differential Comment Polychromasia Hypochromasia Anisocytosis Microcytosis PT 13.4 INR 1.0 APTT 46.8 H Sodium Potassium Chloride Carbon Dioxide Anion Gap BUN Creatinine Estim Creat Clear Calc Est GFR (MDRD) Af Amer Est GFR (MDRD) Non-Af BUN/Creatinine Ratio Glucose Calcium Lactate Dehydrogenase 289 H Total Protein 5.4 L Globulin 2.8 Albumin/Globulin Ratio 0.9 Fluid Source Fluid Color Fluid Appearance Fluid pH Fluid WBC Fluid RBC Fluid Tot Cell Count Fld Polynuclear WBCs # Fld Polynuclear WBCs % Fluid Mononuclear WBCs Fld Mononuclear WBCs % Fluid Neutrophils Fluid Lymphocytes Fluid Monocytes Fld Mesothelial Cells Fl Pathologist Comment Fluid Glucose 149 H Fluid Total Protein 3.1 Fluid LDH 132 Fluid Comment 2 Miscellaneous Cytology 05/15/17 05/15/17 05/15/17 14:30 14:30 15:15 WBC RBC Hgb Hct MCV MCH MCHC RDW RDW Differential Plt Count MPV Immature Gran % (Auto) Neut % (Auto) Lymph % (Auto) [place] % (Auto) Eos % (Auto) Baso % (Auto) Absolute Neuts (auto) Absolute Lymphs (auto) Total Counted Differential Comment Polychromasia Hypochromasia Anisocytosis Microcytosis PT INR APTT Sodium Potassium Chloride Carbon Dioxide Anion Gap BUN Creatinine Estim Creat Clear Calc Est GFR (MDRD) Af Amer Est GFR (MDRD) Non-Af BUN/Creatinine Ratio Glucose Calcium Lactate Dehydrogenase Total Protein Globulin Albumin/Globulin Ratio Fluid Source THORACENTESIS Fluid Color YELLOW Fluid Appearance SL CLDY Fluid pH Pending Fluid WBC 0.183 Fluid RBC 0.41239 Fluid Tot Cell Count 0.215 H Fld Polynuclear WBCs # 0.015 Fld Polynuclear WBCs % 8.2 Fluid Mononuclear WBCs 0.168 Fld Mononuclear WBCs % 91.8 Fluid Neutrophils 3 Fluid Lymphocytes 63 Fluid Monocytes 25 Fld Mesothelial Cells 9 Fl Pathologist Comment May follow Fluid Glucose Cancelled Fluid Total Protein Fluid LDH Fluid Comment 2 SEE COMMENT Miscellaneous Cytology 05/15/17 05/16/17 05/16/17 15:15 05:55 05:55 WBC 4.3 L RBC 2.84 L Hgb 9.4 L Hct 28.6 L MCV 100.7 H MCH 33.1 H MCHC 32.9 RDW 19.4 H RDW Differential 66.4 H Plt Count 228 MPV 9.7 Immature Gran % (Auto) 0.200 Neut % (Auto) 70.0 Lymph % (Auto) 12.4 L [place] % (Auto) 16.7 H Eos % (Auto) 0.7 Baso % (Auto) 0.0 Absolute Neuts (auto) 3.0 Absolute Lymphs (auto) 0.53 L Total Counted Not Reportable Differential Comment SCAN Polychromasia 1+ Hypochromasia 1+ Anisocytosis 1+ Microcytosis 1+ PT INR APTT Sodium 138 Potassium 3.9 Chloride 102 Carbon Dioxide 27.0 Anion Gap 9 BUN 25 H Creatinine 1.25 H Estim Creat Clear Calc 34.10 Est GFR (MDRD) Af Amer 54 L Est GFR (MDRD) Non-Af 45 L BUN/Creatinine Ratio 20.0 Glucose 68 L Calcium 7.7 L Lactate Dehydrogenase Total Protein Globulin Albumin/Globulin Ratio Fluid Source Fluid Color Fluid Appearance Fluid pH Fluid WBC Fluid RBC Fluid Tot Cell Count Fld Polynuclear WBCs # Fld Polynuclear WBCs % Fluid Mononuclear WBCs Fld Mononuclear WBCs % Fluid Neutrophils Fluid Lymphocytes Fluid Monocytes Fld Mesothelial Cells Fl Pathologist Comment Fluid Glucose Fluid Total Protein Fluid LDH Fluid Comment 2 Miscellaneous Cytology Pending POC Glucose 05/16/17 05/15/17 05/15/17 06:41 21:03 16:25 POC Glucose 78 74 105 05/15/17 12:02 POC Glucose 158 H Assessment/Plan Active and Suspected Problems Shortness of breath (Acute) Cough (Acute) Volume overload (Acute) 1) Volume overload. Assessment: -Previous echocardiogram suggested diastolic dysfunction. -Responded to higher doses of intravenous furosemide. -Weight is down -She also has underlying chronic kidney disease secondary to diabetes. -Still has cough, but non-infectious 2/2 bilateral pleural effusion Plan: - fluid cytology is pending- rule out malignant effusion. - If + malignant fluid, then may need Pleur-X catheter ( out-patient ) placement 2) Pancreas cancer. Assessment: -High risk pancreas cancer with positive vascular margin. -Poor tolerance to adjuvant single agent chemotherapy secondary to hematologic toxicity. -Would not be a candidate for palliative chemotherapy Plan: -If fluid is negative for malignancy, then get PET/CT scan ( out-patient ); local recurrent at pancreatic bed, would consider IMRT or radiosurgery for her local recurrence. -Schedule appointment with Dr. Piña next week. cc: Dr. Bryant, Dr. Vito Piña, Dr. Alston
--- NOTE | 2017-05-16 09:26 | NURSING ---
STAFF FROM HOSPICE HERE TO EXPLAIN PROGRAM, DIFFERENCES BETWEEN PALLIATIVE AND REGULAR HOSPICE-2 DAUGHTERS IN ROOM FOR DISCUSSION ALSO
--- NOTE | 2017-05-16 10:01 | CASEMGMT ---
Addendum entered by Nena Vasquez 05/16/17 12:13: Social Work Return call from My at [facility] and they are able to accept pt. Updated clinicals faxed and Tabby will start precert. NAN met with pt and two daughters in room and informed them of above. NAN will continue to follow. CANDACE Brown Original Note: Social Work Donald from [facility] here to meet with pt and two daughters. Per Donald, information was presented on the palliative care program as well as the hospice program. Pt appreciative of the information but not interested in signing up for the program at this time. Both dgts requesting face to face with NAN. NAN met with dgts and provided emotional support. Update provided to dgts that [facility] has not yet made a decision and NAN again explained the process of SNF placement. Phone call received from [facility]. My states she needs referral from yesterday refaxed. Information faxed with request that it is reviewed in a timely manner and determination be relayed to NAN. NAN will continue to follow for emotional support and discharge planning. CANDACE Brown
[2017-05-16] MEDS: Magnesium Oxide 400 MG Tablet PO ×2 (10:02→22:51)
[2017-05-16] MEDS: Atorvastatin Calcium 40 MG Tablet PO (10:02)
[2017-05-16] MEDS: Glucerna Shake 120 ML LIQUID PO ×2 (10:02→13:24)
[2017-05-16] MEDS: Aspirin E.C. 81 MG Tablet PO (10:02)
[2017-05-16 11:46] LABS: Bedside Glucose 144 mg/dL (70-110)
--- NOTE | 2017-05-16 14:56 | PCM.PN.HOSP ---
Patient Problems: Active and Suspected Problems Shortness of breath (Acute) Cough (Acute) Volume overload (Acute) Subjective: Patient coughed out big chunk of mucus. Her pulse ox dropped to 87% on ambulation on room air, 93% on 2 L of oxygen. Pleural finding explained to the patient's daughter and was told fluid cytology still pending. Pleural fluid culture shows no organism to date. Objective: General: Alert, Oriented x3, Cooperative, weak HEENT: Atraumatic, PERRLA, EOMI, Normocephalic Neck: Supple, No JVD, Negative Carotid Bruits Lungs: Diminished, Short of Breath better, Wheezes, pleural fluid has decreased after right thoracocentesis. Cardiovascular: Regular rate, Regular Rhythm, Normal S1, Normal S2, No murmurs Abdomen: Bowel Sounds Present, Soft, Non Tender, Non-Distended Extremities: Capillary Refill Less than 3 Seconds, Edema Skin: No rashes, No breakdown Musculoskeletal: No Tenderness to Palpation of Joints or Extremities Neurological: Cranial nerves II-XII grossly intact Psych/Mental Status: Normal Affect, Appropriate Vitals/I&O's: Vital Signs Temp Pulse Resp BP Pulse Ox 99.0 F 89 16 119/54 L 93 05/16/17 08:19 05/16/17 13:29 05/16/17 13:29 05/16/17 08:19 05/16/17 08:48 Oxygen Flow Rate (L/min) 2 Oxygen Delivery Method Room Air Weight: 149 lb 3.2 oz Body Mass Index (BMI) 27.3 Intake and Output for Last 24 Hours 05/14/17 05/15/17 05/16/17 23:59 23:59 23:59 Intake Total 260 / 260 200 / 200 Output Total 2150 / 2150 Balance -1890 / -1890 200 / 200 Microbiology Past 72 Hours 05/15/17 15:15 Fluid - Thoracentesis Fluid Gram Stain - Preliminary 05/15/17 15:15 Fluid - Thoracentesis Fluid Body Fluid Culture - Preliminary No growth-Final to follow Laboratory Results 05/14/17 14:30: Fluid Glucose 149 H, Fluid Total Protein 3.1, Fluid LDH 132 05/15/17 14:30: Fluid Glucose Cancelled 05/15/17 14:30: Fluid pH Pending 05/15/17 15:15: Fluid Source THORACENTESIS, Fluid Color YELLOW, Fluid Appearance SL CLDY, Fluid WBC 0.183, Fluid RBC 0.08270, Fluid Tot Cell Count 0.215 H, Fld Polynuclear WBCs # 0.015, Fld Polynuclear WBCs % 8.2, Fluid Mononuclear WBCs 0.168, Fld Mononuclear WBCs % 91.8, Fluid Neutrophils 3, Fluid Lymphocytes 63, Fluid Monocytes 25, Fld Mesothelial Cells 9, Fl Pathologist Comment May follow, Fluid Comment 2 SEE COMMENT 05/15/17 15:15: Miscellaneous Cytology Pending 05/15/17 16:25: POC Glucose 105 05/15/17 21:03: POC Glucose 74 05/16/17 05:55: WBC 4.3 L, RBC 2.84 L, Hgb 9.4 L, Hct 28.6 L, MCV 100.7 H, MCH 33.1 H, MCHC 32.9, RDW 19.4 H, RDW Differential 66.4 H, Plt Count 228, MPV 9.7, Immature Gran % (Auto) 0.200, Neut % (Auto) 70.0, Lymph % (Auto) 12.4 L, [place] % (Auto) 16.7 H, Eos % (Auto) 0.7, Baso % (Auto) 0.0, Absolute Neuts (auto) 3.0, Absolute Lymphs (auto) 0.53 L, Total Counted Not Reportable, Differential Comment SCAN, Polychromasia 1+, Hypochromasia 1+, Anisocytosis 1+, Microcytosis 1+ 05/16/17 05:55: Sodium 138, Potassium 3.9, Chloride 102, Carbon Dioxide 27.0, Anion Gap 9, BUN 25 H, Creatinine 1.25 H, Estim Creat Clear Calc 34.10, Est GFR (MDRD) Af Amer 54 L, Est GFR (MDRD) Non-Af 45 L, BUN/Creatinine Ratio 20.0, Glucose 68 L, Calcium 7.7 L 05/16/17 06:41: POC Glucose 78 05/16/17 11:44: POC Glucose 144 H Current Medications Acetaminophen (Tylenol) 650 mg PO Q6H PRN PRN PRN Reason: Mild Pain (1-3)/Temp > 100.7 F Last Admin: 05/15/17 20:46 Dose: 650 mg Albuterol Sulfate (Ventolin Aerosols) 2.5 mg INHALATION TID.RT [facility] Last Admin: 05/16/17 13:27 Dose: 2.5 mg Aspirin (Ecotrin) 81 mg PO DAILY@0800 [facility] Last Admin: 05/16/17 10:02 Dose: 81 mg Atorvastatin Calcium (Lipitor) 40 mg PO DAILY [facility] Last Admin: 05/16/17 10:02 Dose: 40 mg Furosemide (Lasix) 20 mg IV Q8 [facility] Last Admin: 05/16/17 13:25 Dose: 20 mg Heparin Sodium (Porcine) (Heparin Na) 5,000 unit SC Q8 [facility] Last Admin: 05/16/17 13:24 Dose: 5,000 u Insulin Aspart (Novolog Flexpen (Bkc)) 0 units SC ACHS [facility] PRN Reason: Protocol Last Admin: 05/16/17 12:55 Dose: Not Given Magnesium Hydroxide (Milk Of Magnesia) 30 ml PO DAILY PRN PRN PRN Reason: Constipation Magnesium Oxide (Mag-Ox 400) 400 mg PO BID [facility] Last Admin: 05/16/17 10:02 Dose: 400 mg Nutritional Formula (Lactose Free) (Glucerna Shake) 120 ml PO 4X/DAY [facility] Last Admin: 05/16/17 13:24 Dose: 120 ml Potassium Chloride (K-Dur) 20 meq PO DAILY@0800 [facility] Last Admin: 05/16/17 10:02 Dose: 20 meq Sodium Chloride () 5 - 30 ml IV UD PRN PRN Reason: SALINE FLUSH Last Admin: 05/16/17 05:59 Dose: 20 ml Assessment/Plan Active and Suspected Problems Shortness of breath (Acute) Cough (Acute) Volume overload (Acute) This is a 72-year-old female with history of pancreatic cancer with left subclavicular MediPort with last chemotherapy about 2 weeks ago admitted with shortness of breath or cough and hypoxia, 89% on room air and chronic bilateral lower extremity edema, progressively getting worse over of 2 weeks. Patient did not had chest pain. Patient has history of pancreatic cancer status post Whipple's procedure in September 2016 and then on chemotherapy complicated with anemia after chemotherapy. 1. Acute hypoxic respiratory failure secondary to bilateral pleural effusion, right worse than left exact etiology unclear but possible malignant effusion from pancreatic cancer: Patient is admitted on telemetry. On IV Lasix. Patient had ultrasound-guided thoracocentesis on 05/15/2017. fluid chemistry, cell count reviewed with the patient family. Pleural fluid analysis shows exudative nature of fluid. Fluid cell count shows mainly mononuclear cell 91%, lymphocytes 63, monocyte 25. Neutrophils 3. Cytology is pending. This was discussed with the patient's daughter in the presence of field case manager nurse that we are waiting for fluid cytology in order decide the nature of fluid malignant versus benign. If fluid cytology positive, patient's daughter understood poor prognosis and wanted further hospice care and pleural fluid catheter. If benign follow up Dr. Piña. Patient's family member wants for definitive diagnosis before discharge as the management for benign versus malignant pleural effusion is dependent on fluid cytology. Pleural fluid shows no organisms to date. Fluid cytology also favors noninfectious. 2. Patchy bilateral lung infiltrate possible due to atelectasis on superimposed bilateral pleural effusion: 2D echo done shows LV size and systolic function normal with EF 60%. No evidence for diastolic dysfunction. No regional wall motion abnormality. Normal RV size and systolic function. Normal right and left atria. Mild to moderate TR with pulmonary artery systolic pressure of 43 mmHg. Incentive spirometry 3. 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 Hemoglobin improved from 7.9 g percent to 10 g percent. Pancreatic cancer status post Whipple surgery and chemotherapy complicated with pneumonia: Recently patient's CA-[id number] region have risen. Other comorbidities include diabetes mellitus type 2: Accu-Chek before meals and at bedtime. Microbiology Past 72 Hours 05/15/17 15:15 Fluid - Thoracentesis Fluid Gram Stain - Preliminary 05/15/17 15:15 Fluid - Thoracentesis Fluid Body Fluid Culture - Preliminary No growth-Final to follow Laboratory Results 05/14/17 14:30: Fluid Glucose 149 H, Fluid Total Protein 3.1, Fluid LDH 132 05/15/17 14:30: Fluid Glucose Cancelled 05/15/17 14:30: Fluid pH Pending 05/15/17 15:15: Fluid Source THORACENTESIS, Fluid Color YELLOW, Fluid Appearance SL CLDY, Fluid WBC 0.183, Fluid RBC 0.80969, Fluid Tot Cell Count 0.215 H, Fld Polynuclear WBCs # 0.015, Fld Polynuclear WBCs % 8.2, Fluid Mononuclear WBCs 0.168, Fld Mononuclear WBCs % 91.8, Fluid Neutrophils 3, Fluid Lymphocytes 63, Fluid Monocytes 25, Fld Mesothelial Cells 9, Fl Pathologist Comment May follow, Fluid Comment 2 SEE COMMENT 05/15/17 15:15: Miscellaneous Cytology Pending 05/15/17 16:25: POC Glucose 105 05/15/17 21:03: POC Glucose 74 05/16/17 05:55: WBC 4.3 L, RBC 2.84 L, Hgb 9.4 L, Hct 28.6 L, MCV 100.7 H, MCH 33.1 H, MCHC 32.9, RDW 19.4 H, RDW Differential 66.4 H, Plt Count 228, MPV 9.7, Immature Gran % (Auto) 0.200, Neut % (Auto) 70.0, Lymph % (Auto) 12.4 L, [place] % (Auto) 16.7 H, Eos % (Auto) 0.7, Baso % (Auto) 0.0, Absolute Neuts (auto) 3.0, Absolute Lymphs (auto) 0.53 L, Total Counted Not Reportable, Differential Comment SCAN, Polychromasia 1+, Hypochromasia 1+, Anisocytosis 1+, Microcytosis 1+ 05/16/17 05:55: Sodium 138, Potassium 3.9, Chloride 102, Carbon Dioxide 27.0, Anion Gap 9, BUN 25 H, Creatinine 1.25 H, Estim Creat Clear Calc 34.10, Est GFR (MDRD) Af Amer 54 L, Est GFR (MDRD) Non-Af 45 L, BUN/Creatinine Ratio 20.0, Glucose 68 L, Calcium 7.7 L 05/16/17 06:41: POC Glucose 78 05/16/17 11:44: POC Glucose 144 H Clinical Impression(s) from Imaging Studies Abdomen/Pelvis CT 05/12/17 12:53 IMPRESSION: Status post partial resection of the pancreas. Small amount of free fluid in the pelvis. Bilateral pleural effusions with bibasilar atelectasis. Small pericardial effusion. Electronically Signed: Gab Wang MD at 15:01 EST Tel [phone], Service support , Chest CTA 05/12/17 12:55 IMPRESSION: Bilateral pleural effusions right greater than left with bibasilar atelectasis and/or infiltration. Patchy airspace disease in both lungs slightly worse in the left upper lobe. Small pericardial effusion. Electronically Signed: Gab Wang MD at 15:03 EST Tel [phone], Service support , Chest X-Ray 05/13/17 05:55 IMPRESSION: Moderate cardiomegaly. Small bilateral pleural effusions. Possible pneumonia or atelectasis in the right lung lower lobe. Chest X-Ray 05/15/17 14:50 IMPRESSION: Status post right thoracentesis. There is no evidence pneumothorax. Code Visit Inpatient E&M: 20157 [facility] L3
--- NOTE | 2017-05-16 15:07 | PN_ITS ---
Patient Problems: Active and Suspected Problems Shortness of breath (Acute) Cough (Acute) Volume overload (Acute) Subjective: Patient coughed out big chunk of mucus. Her pulse ox dropped to 87% on ambulation on room air, 93% on 2 L of oxygen. Pleural finding explained to the patient's daughter and was told fluid cytology still pending. Pleural fluid culture shows no organism to date. Objective: General: Alert, Oriented x3, Cooperative, weak HEENT: Atraumatic, PERRLA, EOMI, Normocephalic Neck: Supple, No JVD, Negative Carotid Bruits Lungs: Diminished, Short of Breath better, Wheezes, pleural fluid has decreased after right thoracocentesis. Cardiovascular: Regular rate, Regular Rhythm, Normal S1, Normal S2, No murmurs Abdomen: Bowel Sounds Present, Soft, Non Tender, Non-Distended Extremities: Capillary Refill Less than 3 Seconds, Edema Skin: No rashes, No breakdown Musculoskeletal: No Tenderness to Palpation of Joints or Extremities Neurological: Cranial nerves II-XII grossly intact Psych/Mental Status: Normal Affect, Appropriate Vitals/I&O's: Vital Signs Temp Pulse Resp BP Pulse Ox 99.0 F 89 16 119/54 L 93 05/16/17 08:19 05/16/17 13:29 05/16/17 13:29 05/16/17 08:19 05/16/17 08:48 Oxygen Flow Rate (L/min) 2 Oxygen Delivery Method Room Air Weight: 149 lb 3.2 oz Body Mass Index (BMI) 27.3 Intake and Output for Last 24 Hours 05/14/17 05/15/17 05/16/17 23:59 23:59 23:59 Intake Total 260 / 260 200 / 200 Output Total 2150 / 2150 Balance -1890 / -1890 200 / 200 Microbiology Past 72 Hours 05/15/17 15:15 Fluid - Thoracentesis Fluid Gram Stain - Preliminary 05/15/17 15:15 Fluid - Thoracentesis Fluid Body Fluid Culture - Preliminary No growth-Final to follow Laboratory Results 05/14/17 14:30: Fluid Glucose 149 H, Fluid Total Protein 3.1, Fluid LDH 132 05/15/17 14:30: Fluid Glucose Cancelled 05/15/17 14:30: Fluid pH Pending 05/15/17 15:15: Fluid Source THORACENTESIS, Fluid Color YELLOW, Fluid Appearance SL CLDY, Fluid WBC 0.183, Fluid RBC 0.40346, Fluid Tot Cell Count 0.215 H, Fld Polynuclear WBCs # 0.015, Fld Polynuclear WBCs % 8.2, Fluid Mononuclear WBCs 0.168, Fld Mononuclear WBCs % 91.8, Fluid Neutrophils 3, Fluid Lymphocytes 63, Fluid Monocytes 25, Fld Mesothelial Cells 9, Fl Pathologist Comment May follow, Fluid Comment 2 SEE COMMENT 05/15/17 15:15: Miscellaneous Cytology Pending 05/15/17 16:25: POC Glucose 105 05/15/17 21:03: POC Glucose 74 05/16/17 05:55: WBC 4.3 L, RBC 2.84 L, Hgb 9.4 L, Hct 28.6 L, MCV 100.7 H, MCH 33.1 H, MCHC 32.9, RDW 19.4 H, RDW Differential 66.4 H, Plt Count 228, MPV 9.7, Immature Gran % (Auto) 0.200, Neut % (Auto) 70.0, Lymph % (Auto) 12.4 L, Coryell % (Auto) 16.7 H, Eos % (Auto) 0.7, Baso % (Auto) 0.0, Absolute Neuts (auto) 3.0, Absolute Lymphs (auto) 0.53 L, Total Counted Not Reportable, Differential Comment SCAN, Polychromasia 1+, Hypochromasia 1+, Anisocytosis 1+, Microcytosis 1+ 05/16/17 05:55: Sodium 138, Potassium 3.9, Chloride 102, Carbon Dioxide 27.0, Anion Gap 9, BUN 25 H, Creatinine 1.25 H, Estim Creat Clear Calc 34.10, Est GFR (MDRD) Af Amer 54 L, Est GFR (MDRD) Non-Af 45 L, BUN/Creatinine Ratio 20.0, Glucose 68 L, Calcium 7.7 L 05/16/17 06:41: POC Glucose 78 05/16/17 11:44: POC Glucose 144 H Current Medications Acetaminophen (Tylenol) 650 mg PO Q6H PRN PRN PRN Reason: Mild Pain (1-3)/Temp > 100.7 F Last Admin: 05/15/17 20:46 Dose: 650 mg Albuterol Sulfate (Ventolin Aerosols) 2.5 mg INHALATION TID.RT [facility] Last Admin: 05/16/17 13:27 Dose: 2.5 mg Aspirin (Ecotrin) 81 mg PO DAILY@0800 [facility] Last Admin: 05/16/17 10:02 Dose: 81 mg Atorvastatin Calcium (Lipitor) 40 mg PO DAILY [facility] Last Admin: 05/16/17 10:02 Dose: 40 mg Furosemide (Lasix) 20 mg IV Q8 [facility] Last Admin: 05/16/17 13:25 Dose: 20 mg Heparin Sodium (Porcine) (Heparin Na) 5,000 unit SC Q8 [facility] Last Admin: 05/16/17 13:24 Dose: 5,000 u Insulin Aspart (Novolog Flexpen (Bkc)) 0 units SC ACHS [facility] PRN Reason: Protocol Last Admin: 05/16/17 12:55 Dose: Not Given Magnesium Hydroxide (Milk Of Magnesia) 30 ml PO DAILY PRN PRN PRN Reason: Constipation Magnesium Oxide (Mag-Ox 400) 400 mg PO BID [facility] Last Admin: 05/16/17 10:02 Dose: 400 mg Nutritional Formula (Lactose Free) (Glucerna Shake) 120 ml PO 4X/DAY [facility] Last Admin: 05/16/17 13:24 Dose: 120 ml Potassium Chloride (K-Dur) 20 meq PO DAILY@0800 [facility] Last Admin: 05/16/17 10:02 Dose: 20 meq Sodium Chloride () 5 - 30 ml IV UD PRN PRN Reason: SALINE FLUSH Last Admin: 05/16/17 05:59 Dose: 20 ml Assessment/Plan Active and Suspected Problems Shortness of breath (Acute) Cough (Acute) Volume overload (Acute) This is a 72-year-old female with history of pancreatic cancer with left subclavicular MediPort with last chemotherapy about 2 weeks ago admitted with shortness of breath or cough and hypoxia, 89% on room air and chronic bilateral lower extremity edema, progressively getting worse over of 2 weeks. Patient did not had chest pain. Patient has history of pancreatic cancer status post Whipple's procedure in September 2016 and then on chemotherapy complicated with anemia after chemotherapy. 1. Acute hypoxic respiratory failure secondary to bilateral pleural effusion, right worse than left exact etiology unclear but possible malignant effusion from pancreatic cancer: Patient is admitted on telemetry. On IV Lasix. Patient had ultrasound-guided thoracocentesis on 05/15/2017. fluid chemistry, cell count reviewed with the patient family. Pleural fluid analysis shows exudative nature of fluid. Fluid cell count shows mainly mononuclear cell 91%, lymphocytes 63, monocyte 25. Neutrophils 3. Cytology is pending. This was discussed with the patient's daughter in the presence of case supervisor nurse that we are waiting for fluid cytology in order decide the nature of fluid malignant versus benign. If fluid cytology positive, patient's daughter understood poor prognosis and wanted further hospice care and pleural fluid catheter. If benign follow up Dr. Piña. Patient's family member wants for definitive diagnosis before discharge as the management for benign versus malignant pleural effusion is dependent on fluid cytology. Pleural fluid shows no organisms to date. Fluid cytology also favors noninfectious. 2. Patchy bilateral lung infiltrate possible due to atelectasis on superimposed bilateral pleural effusion: 2D echo done shows LV size and systolic function normal with EF 60%. No evidence for diastolic dysfunction. No regional wall motion abnormality. Normal RV size and systolic function. Normal right and left atria. Mild to moderate TR with pulmonary artery systolic pressure of 43 mmHg. Incentive spirometry 3. 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 Hemoglobin improved from 7.9 g percent to 10 g percent. Pancreatic cancer status post Whipple surgery and chemotherapy complicated with pneumonia: Recently patient's CA-19-9 region have risen. Other comorbidities include diabetes mellitus type 2: Accu-Chek before meals and at bedtime. Microbiology Past 72 Hours 05/15/17 15:15 Fluid - Thoracentesis Fluid Gram Stain - Preliminary 05/15/17 15:15 Fluid - Thoracentesis Fluid Body Fluid Culture - Preliminary No growth-Final to follow Laboratory Results 05/14/17 14:30: Fluid Glucose 149 H, Fluid Total Protein 3.1, Fluid LDH 132 05/15/17 14:30: Fluid Glucose Cancelled 05/15/17 14:30: Fluid pH Pending 05/15/17 15:15: Fluid Source THORACENTESIS, Fluid Color YELLOW, Fluid Appearance SL CLDY, Fluid WBC 0.183, Fluid RBC 0.75722, Fluid Tot Cell Count 0.215 H, Fld Polynuclear WBCs # 0.015, Fld Polynuclear WBCs % 8.2, Fluid Mononuclear WBCs 0.168, Fld Mononuclear WBCs % 91.8, Fluid Neutrophils 3, Fluid Lymphocytes 63, Fluid Monocytes 25, Fld Mesothelial Cells 9, Fl Pathologist Comment May follow, Fluid Comment 2 SEE COMMENT 05/15/17 15:15: Miscellaneous Cytology Pending 05/15/17 16:25: POC Glucose 105 05/15/17 21:03: POC Glucose 74 05/16/17 05:55: WBC 4.3 L, RBC 2.84 L, Hgb 9.4 L, Hct 28.6 L, MCV 100.7 H, MCH 33.1 H, MCHC 32.9, RDW 19.4 H, RDW Differential 66.4 H, Plt Count 228, MPV 9.7, Immature Gran % (Auto) 0.200, Neut % (Auto) 70.0, Lymph % (Auto) 12.4 L, Coryell % (Auto) 16.7 H, Eos % (Auto) 0.7, Baso % (Auto) 0.0, Absolute Neuts (auto) 3.0, Absolute Lymphs (auto) 0.53 L, Total Counted Not Reportable, Differential Comment SCAN, Polychromasia 1+, Hypochromasia 1+, Anisocytosis 1+, Microcytosis 1+ 05/16/17 05:55: Sodium 138, Potassium 3.9, Chloride 102, Carbon Dioxide 27.0, Anion Gap 9, BUN 25 H, Creatinine 1.25 H, Estim Creat Clear Calc 34.10, Est GFR (MDRD) Af Amer 54 L, Est GFR (MDRD) Non-Af 45 L, BUN/Creatinine Ratio 20.0, Glucose 68 L, Calcium 7.7 L 05/16/17 06:41: POC Glucose 78 05/16/17 11:44: POC Glucose 144 H Clinical Impression(s) from Imaging Studies Abdomen/Pelvis CT 05/12/17 12:53 IMPRESSION: Status post partial resection of the pancreas. Small amount of free fluid in the pelvis. Bilateral pleural effusions with bibasilar atelectasis. Small pericardial effusion. Electronically Signed: Gab Wang MD at 15:01 EST Tel [phone], Service support , Chest CTA 05/12/17 12:55 IMPRESSION: Bilateral pleural effusions right greater than left with bibasilar atelectasis and/or infiltration. Patchy airspace disease in both lungs slightly worse in the left upper lobe. Small pericardial effusion. Electronically Signed: Gab Wang MD at 15:03 EST Tel [phone], Service support , Chest X-Ray 05/13/17 05:55 IMPRESSION: Moderate cardiomegaly. Small bilateral pleural effusions. Possible pneumonia or atelectasis in the right lung lower lobe. Chest X-Ray 05/15/17 14:50 IMPRESSION: Status post right thoracentesis. There is no evidence pneumothorax. Code Visit Inpatient E&M: 74756 [facility] Hosp L3
--- NOTE | 2017-05-16 16:54 | CASEMGMT ---
Social Work Phone call from My at [facility] and they did receive insurance authorization for pt. SW met with pt dgt Jana outside of pt room and informed that Insurance has approved SNF stay at [facility]. Pt dgt informs SW of conversation she had with pt physician and states discharge plans have changed. Pt dgt became tearful when discussing pt prognosis and emotional support provided to Jana. SW spoke with pt physician and explained families understanding of conversation with physician. Some misunderstandings became apparent. SW, Dr. Alston and NETTE Encinas met with pt and dgt Jana in room and physician explained medical condition again. SW provided support to pt dgt and encouraged open communication and clear understanding with physician concerning pt diagnosis. Physician stating pt not ready for d/c at this time. Will await test results prior to d/c. After physician, RN and dgt exited room, pt waved SW to come to her. Pt explained that she did not hear nor understand what was said and requested explanation. SW explained to pt what physician had stated that conclusion of diagnosis can not be determined until test results came back. Pt asks SW if the results come back that there is cancer in my lungs what will we do? SW explained that Dr. Piña will make that determination. Pt states that Dr. Piña has already informed her that there will be no more chemo and pt then states there is nothing else that can be done. As pt made this comment she becomes tearful. Emotional support provided as consideration of prognosis is processed by pt. SW explored support system with pt and pt discussed children and appreciation for their support. Pt also states she has many friends who are supportive of her. SW inquired of pt spiritual beliefs and offered hospital cloth mercerizer back tender. Pt declined stating she is not a sabianist person. SW spent time with pt and emotional support was provided and life review discussed. Pt acknowledged appreciation for time spend with SW. SW will continue to follow for emotional support and SNF placement. CANDACE Brown
[2017-05-16] MEDS: Ipratropium/Albuterol Sulfate 3 ML AMPUL.NEB INHALATION (19:19)
[2017-05-16] MEDS: guaiFENesin 1,200 MG Tablet 1200 MG PO (22:53)
[2017-05-16 23:20] LABS: Bedside Glucose 136 mg/dL (70-110)
[2017-05-17] VITALS (7 sets, daily range): BP systolic 114–123; BP diastolic 48–62; PULSE 78–87; RESP 16–22; TEMP 36.8–37.1; O2SAT 2–99
[2017-05-17] MEDS: Furosemide 20 MG/2 ML VIAL IV ×2 (06:03→14:06)
[2017-05-17] MEDS: Ipratropium/Albuterol Sulfate 3 ML AMPUL.NEB INHALATION ×2 (06:35→15:14)
[2017-05-17] MEDS: 0.9% NaCl Peripheral Flush Adult/Peds IV (07:35)
[2017-05-17 07:45] LABS: Bedside Glucose 95 mg/dL (70-110)
[2017-05-17 07:52] LABS: Absolute Lymphocyte Count 0.57 X10^3/ul (0.83-4.51); Absolute Neutrophil Count 2.7 X10^3/uL (2.0-7.7); Basophil# 0.01 X10^3/uL; Basophil% 0.2 % (0-1); Eosinophil# 0.02 X10^3/uL; Eosinophils% 0.5 % (0-5); Hematocrit 27.2 % (37-47); Hemoglobin 9.1 g/dl (12.0-15.0); Lymphocyte # 0.57 X10^3/ul (4.0); Mean Corp Hgb Conc 33.5 g/gl (32-36); Mean Corpuscular Hgb 34.2 pg (27.0-32.0); Mean Corpuscular Volume 102.3 fL (81-99); Mean Platelet Vol. 9.9 fl (6.2-12.0); Monocyte# 0.78 X10^3/uL; Monocyte% 19.2 % (0-10); Neutrophil # 2.67 X10^3/uL (2.7-7.7); Neutrophil % 65.9 % (47-70); Platelet Count 241 K/mm3 (150-450); RBC Distribution Width CV 19.2 % (11.6-14.6); RBC Distribution Width SD 65.7 fl (35.1-43.9); Red Blood Count 2.66 M/mm3 (4.2-5.4); White Blood Count 4.1 K/mm3 (4.4-11.0)
[2017-05-17 07:54] LABS: Differential Indicated SCAN CRITERIA MET; POSITIVE COUNT YES; POSITIVE DIFFERENTIAL YES; POSITIVE MORPHOLOGY NO
[2017-05-17] MEDS: Aspirin E.C. 81 MG Tablet PO (07:55)
[2017-05-17 08:09] LABS: Anion Gap 9 (5-15); BUN 26 mg/dL (7-18); BUN/Creat Ratio 20.3 RATIO (10-20); Chloride 100 mmol/L (98-107); Creatinine, Serum 1.28 mg/dL (0.55-1.02); EST Glomerular Filtration Rate 43 mL/min (>60); Est Glom Filt Rate - Afr Amer 52 mL/min (>60); Glucose 91 mg/dL (74-106); Potassium 3.7 mmol/L (3.5-5.1); Sodium Level 136 mmol/L (136-145)
[2017-05-17 08:27] LABS: Anisocytosis 1+; Hypochromasia 1+; Platelet Estimate ADEQUATE (ADEQ); Polychromasia RARE
--- NOTE | 2017-05-17 09:39 | CASEMGMT ---
Addendum entered by Nena Vasquez 05/17/17 09:46: Social Work Tabby at [facility] notified that current plan is for pt is to remain in the hospital until test results come back therefore d/c today is unlikely. [facility] has accepted pt and preauth has been obtained. Plan: [facility] SNF when medically ready CANDACE Brown Original Note: Social Work Pt dgt Marzena requesting to speak with NAN. Marzena asking about family meeting with physician yesterday. SW explained that physician came back to pt room to clarify previous discussion with family. PT dgt expresses understanding of situation. Emotional support provided to pt dgt. SW will continue to follow. CANDACE Brown
[2017-05-17] MEDS: Glucerna Shake 120 ML LIQUID PO (10:07)
[2017-05-17] MEDS: Magnesium Oxide 400 MG Tablet PO (10:07)
[2017-05-17] MEDS: Atorvastatin Calcium 40 MG Tablet PO (10:07)
[2017-05-17] MEDS: guaiFENesin 1,200 MG Tablet 1200 MG PO (10:08)
[2017-05-17 11:05] LABS: Pathologist Comment/Body Fluid Reviewed
[2017-05-17 11:16] LABS: Bedside Glucose 121 mg/dL (70-110)
--- NOTE | 2017-05-17 16:02 | PCM.TXEXTCAR ---
- Diet 05/13/17 11:13 Diet: Regular Diet Is pt able to select menu?: Yes Diet Comments: please send milk shake / juan c/ vanilla with ,meals pt does not always eat - Routine Orders/Code Status Enema Frequency: Daily PRN Suppository Type: Dulcolax 10mg O2 Liters per Minute: 2 O2 Frequency: PRN Routine Lab Work: CBC - On 05/22/2017, BMP - On 05/22/2017 - Wound(s) r side back Wound Type: Puncture - Therapies Weight Bearing: Weight bearing as tolerated Physical Therapy: Eval and Treat Occupational Therapy: Eval and Treat - Allergies/Procedures Done in Hospital Allergies/Adverse Reactions: Allergies bacitracin [From Neosporin ([id number])] Allergy (Verified 05/12/17 12:34) Rash neomycin [From Neosporin ([id number])] Allergy (Verified 05/12/17 12:34) Rash polymyxin B [From Neosporin ([id number])] Allergy (Verified 05/12/17 12:34) Rash - Type of Care/Length of Stay Estimated LOS: Convalescent Care Less Than 30 days Type of Care Needed: Skilled Rehab Potential: Fair Prognosis: Fair - Additional Orders/Day of Discharge Additional Orders: Follow-up Dr. Piña for PET/CT scan ( out-patient ) for possible local recurrent at pancreatic bed, would consider IMRT or radiosurgery for her local recurrence. Day of Discharge: 05/17/17 - Dietary and Speech Recommendations Dietitian Recommendations/Changes: Continue regular diet with glucerna shake on medpass as tolerated. Low sodium/FR as needed for fluid management if PO improves at meals. - Follow Up Care Primary Care Physician: Daisha Bryant MD [Primary Care Provider] - Please follow up with your Primary Care Physician in: in 1-2 weeks Please Follow Up With: Vito Piña DO When: PET/CT scan as outpatient
--- NOTE | 2017-05-17 16:08 | PCM.DC.SUM ---
Discharge Date and Diagnosis Date of Admission: 05/12/17 Date of Discharge: 05/17/17 - Primary Discharge Diagnosis Active and Suspected Problems 1. Acute hypoxic respiratory failure secondary to bilateral pleural effusion, right worse than left exact etiology; exudative nature: 2. Patchy bilateral lung infiltrate possible due to atelectasis on superimposed bilateral pleural effusion: 2D echo done shows LV size and systolic function normal with EF 60%. No evidence for diastolic dysfunction. No regional wall motion abnormality. Normal RV size and systolic function. Normal right and left atria. Mild to moderate TR with pulmonary artery systolic pressure of 43 mmHg. 3. 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 Patient did not had chest pain. Patient has history of pancreatic cancer status post Whipple's procedure in September 2016 and then on chemotherapy complicated with anemia after chemotherapy. General: Alert, Oriented x3, Cooperative, weak HEENT: Atraumatic, PERRLA, EOMI, Normocephalic Neck: Supple, No JVD, Negative Carotid Bruits Lungs: Diminished, Short of Breath better, Wheezes, pleural fluid has decreased after right thoracocentesis. Cardiovascular: Regular rate, Regular Rhythm, Normal S1, Normal S2, No murmurs Abdomen: Bowel Sounds Present, Soft, Non Tender, Non-Distended Extremities: Capillary Refill Less than 3 Seconds, Edema Skin: No rashes, No breakdown Musculoskeletal: No Tenderness to Palpation of Joints or Extremities Neurological: Cranial nerves II-XII grossly intact Psych/Mental Status: Normal Affect, Appropriate. 1. Acute hypoxic respiratory failure secondary to bilateral pleural effusion, right worse than left exact etiology: Patient is admitted on telemetry. On IV Lasix. Patient had ultrasound-guided thoracocentesis on 05/15/2017. fluid chemistry, cell count reviewed with the patient family. Pleural fluid analysis shows exudative nature of fluid. Fluid cell count shows mainly mononuclear cell 91%, lymphocytes 63, monocyte 25. Neutrophils 3. Fluid cytology is negative for malignant cells. This was discussed with the patient's daughter in the presence of correctional casework specialist nurse. As per the oncologist, Dr. Nayak note, if benign follow up Dr. Piña for PET/CT scan ( out-patient ) for possible local recurrent at pancreatic bed, would consider IMRT or radiosurgery for her local recurrence. This was discussed with the patient's 2 daughters and granddaughter in front of the nurse. 2. Patchy bilateral lung infiltrate possible due to atelectasis on superimposed bilateral pleural effusion: 2D echo done shows LV size and systolic function normal with EF 60%. No evidence for diastolic dysfunction. No regional wall motion abnormality. Normal RV size and systolic function. Normal right and left atria. Mild to moderate TR with pulmonary artery systolic pressure of 43 mmHg. Incentive spirometry. Mild cough most probably from pleural effusion and atelectasis. Symptomatic management. 3. 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 Hemoglobin improved from 7.9 g percent to 10 g percent. Myoglobin is stable between 9-10 g percent. Pancreatic cancer status post Whipple surgery and chemotherapy complicated with pneumonia: Recently patient's CA-19-9 region have risen. Other comorbidities include diabetes mellitus type 2: Accu-Chek before meals and at bedtime. Pulse ox is 87% on ambulation on room air, 93% on 2 L of oxygen at rest and on ambulation. The patient is being discharged home. Discharge meds reconciliation done. Patient is discharged on oxygen 2 L/min. Total time spent, exact 32 minutes on discharge meds reconciliation, examination, review of imaging and blood test and discussion with the patient on follow-up instructions. The patient is discharged to SNF. Home Medications: Medications to take at Discharge Aspirin E.C. [Ecotrin] 81 mg PO DAILY@0800 01/19/15 Atorvastatin Calcium [Lipitor] 40 mg PO DAILY 01/19/15 Cyanocobalamin [Vitamin B12] 1,000 mcg IM Q30D 05/12/17 Furosemide [Lasix] 40 mg PO BIDLX 05/12/17 Lipase/Protease/Amylase [Juan Cordon 12,000 Units Capsule] 2 cap PO TIDCM PRN 05/12/17 Magnesium Oxide [Mag-Ox 400] 800 mg PO BID 05/12/17 Ondansetron [Zofran] 8 mg PO Q8H PRN PRN 05/12/17 Acetaminophen [Tylenol Tablet] 650 mg PO Q6H PRN PRN tablet 05/17/17 Benzonatate [Tessalon Perle] 100 mg PO TID PRN PRN #10 capsule 05/17/17 GlipiZIDE [Glucotrol] 2.5 mg PO BID #0 05/17/17 Glucerna Shake 120 ml PO 4X/DAY liquid 05/17/17 Guaifenesin [Mucinex] 1,200 mg PO BID #14 tablet 05/17/17 Insulin Aspart [Novolog Flexpen] See Protocol SC ACHS flexpen 05/17/17 Ipratropium/Albuterol Sulfate [Duoneb] 3 ml INHALATION Q4H PRN PRN ampul.neb 05/17/17 Lisinopril [Zestril] 10 mg PO DAILY #0 05/17/17 Potassium Chloride [K-Dur] 20 meq PO DAILY@0800 tablet 05/17/17 Following Prescrptions Were Given to Patient: Benzonatate [Tessalon Perle] 100 mg PO TID PRN PRN #10 capsule PRN Reason: cough Primary Care Physician: Daisha Bryant MD [Primary Care Provider] - Please follow up with your Primary Care Physician in: in 1-2 weeks Please Follow Up With: Vito Piña DO When: PET/CT scan as outpatient Meaningful Use Info Meaningful Use Diagnoses (Choose all that apply): None applicable Code Visit Inpatient E&M: [id number] [facility] Hosp
--- NOTE | 2017-05-17 16:09 | TREXTCAR_ITS ---
- Diet 05/13/17 11:13 Diet: Regular Diet Is pt able to select menu?: Yes Diet Comments: please send milk shake / juan c/ vanilla with ,meals pt does not always eat - Routine Orders/Code Status Enema Frequency: Daily PRN Suppository Type: Dulcolax 10mg O2 Liters per Minute: 2 O2 Frequency: PRN Routine Lab Work: CBC - On 05/22/2017, BMP - On 05/22/2017 - Wound(s) r side back Wound Type: Puncture - Therapies Weight Bearing: Weight bearing as tolerated Physical Therapy: Eval and Treat Occupational Therapy: Eval and Treat - Allergies/Procedures Done in Hospital Allergies/Adverse Reactions: Allergies bacitracin [From Neosporin ([id number])] Allergy (Verified 05/12/17 12:34) Rash neomycin [From Neosporin ([id number])] Allergy (Verified 05/12/17 12:34) Rash polymyxin B [From Neosporin ([id number])] Allergy (Verified 05/12/17 12:34) Rash - Type of Care/Length of Stay Estimated LOS: Convalescent Care Less Than 30 days Type of Care Needed: Skilled Rehab Potential: Fair Prognosis: Fair - Additional Orders/Day of Discharge Additional Orders: Follow-up Dr. Piña for PET/CT scan ( out-patient ) for possible local recurrent at pancreatic bed, would consider IMRT or radiosurgery for her local recurrence. Day of Discharge: 05/17/17 - Dietary and Speech Recommendations Dietitian Recommendations/Changes: Continue regular diet with glucerna shake on medpass as tolerated. Low sodium/FR as needed for fluid management if PO improves at meals. - Follow Up Care Primary Care Physician: Daisha Bryant MD [Primary Care Provider] - Please follow up with your Primary Care Physician in: in 1-2 weeks Please Follow Up With: Vito Piña DO When: PET/CT scan as outpatient
--- NOTE | 2017-05-17 16:10 | CASEMGMT ---
Social Work Spoke with physician who states he has given test results to pt and family and pt can be discharged at this time. Phone call to My at [facility] and they are able to accept pt this afternoon. NAN met with pt and two daughters and discussed d/c plan. Pt is agreeable to d/c to [facility] today. HENS [id number] completed and Orders faxed to SNF. Per physician, pt will need O2 for transport. NAN informed dgts that pt will need W/C ambulette due to O2 needs and explained the cost of the service. Family agreeable. Transportation arranged for brass pickler by [facility]. Pt, family, RN and [facility] notified of brass pickler time. No further d/c needs. CANDACE Brown
[2017-05-17] MEDS: 0.9% NaCl VAD Flush 10 ML IV (17:26)
[2017-05-18 15:23] LABS: pH, Body Fluid 11254 7.7 (Not Estab.)
== END 2017-05-17 17:42 | disposition skilled nursing facility (03) | DRG 189 ==
LOC: ED 16:22 → MS3 16:26
PROVIDERS: Radiology Diagnostic Radiology; Admitting Provider Internal Medicine; Emergency Provider Emergency Medicine; Family Provider Internal Medicine; PCP Internal Medicine; Visit Provider Internal Medicine
DX: J96.01 Acute respiratory failure with hypoxia (principal); D64.81 Anemia due to antineoplastic chemotherapy; J90 Pleural effusion, not elsewhere classified; E11.22 Type 2 diabetes mellitus with diabetic chronic kidney disease; J98.11 Atelectasis; D63.0 Anemia in neoplastic disease; T45.1X5A Adverse effect of antineoplastic and immunosuppressive drugs, initial encounter; Z79.899 Other long term (current) drug therapy; Z79.84 Long term (current) use of oral hypoglycemic drugs; Z85.07 Personal history of malignant neoplasm of pancreas; N18.9 Chronic kidney disease, unspecified
CPT/HCPCS: 32555; 36415; 36591; 71045; 71046; 71048; 71275; 74177; 80048; 80053; 81001; 82150; 82945; 82962; 83605; 83615; 83690; 83880; 83986; 84156; 84157; 84484; 85025; 85610; 85730; 86850; 86900; 86920; 86922; 87070; 87075; 87205; 88108; 88305; 88313; 89050; 93005; 93306; 94640; 97110; 97116; 97162; 97165; 97530; 97535; 97802; 99251; 99284; J7030; J7040; P9016; P9612; Q9967; A4216; G0463; J1940

== ENCOUNTER → 2017-06-05 10:35 | Outpatient (CLI) | payer MEDICARE, SELFPAY ==
--- NOTE | 2017-06-05 09:00 | PET_ITS ---
EXAMINATION: FDG PET CT INDICATIONS: A 72-year-old female with history of primary pancreatic carcinoma presenting for restaging examination. COMPARISON EXAMINATION: CT of the chest, abdomen and pelvis reports dated 05/12/17. INDEX LESION SIZE SUV INTERPRETATION Left lobe hepatic parenchyma segment III 23.6 mm (frame 136) 3.6 ratio R 2.0 Fulfills borderline quantitative criteria for viable neoplasm, correlation with magnetic resonance imaging recommended NON-INDEX LESION SIZE SUV INTERPRETATION Mediastinum, bilateral thoracic perihilum 2.6 (max) Quantitative criteria for viable neoplasm are not fulfilled TECHNIQUE: Following the intravenous administration of 14.7 mCi of F-18 deoxyglucose via the right hand, multiplanar image acquisitions of the neck, chest, abdomen and pelvis to level of mid thigh, obtained at one hour post radiopharmaceutical administration contemporaneously interpreted with the current CT of the neck, chest, abdomen and pelvis to level of mid thigh, dated 06/05/[address] of the chest, abdomen and pelvis reports dated 05/12/17 reveal: SERUM GLUCOSE LEVEL: 109 mg/dl. HEIGHT: 64 inches. WEIGHT: 145 lbs. FINDINGS: 1. A nodular focus of enhanced glucose metabolism is defined in the upper midline abdomen contiguous to the left lobe of the hepatic parenchyma (2.2) involving segment III. The calculated maximum standard uptake value is 3.5 with a lesion to liver background ratio approximating 2.0. The maximal axial diameter of the corresponding metabolic abnormality on review of CT of the abdomen dated 06/05/17 is approximately 23.6 mm (AP). 2. Mild enhanced glucose concentration is observed in the carinal level mediastinum and bilateral thoracic perihilum rendering a calculated maximum standard uptake value of 2.6. 3. Normal physiologic distribution of the radiopharmaceutical is apparent in the splenic parenchyma, both renal units, bladder and visualized intestinal tract. There is uniform distribution of the radiopharmaceutical concentration compared on the cerebellar hemispheres and cerebral cortex. Diffuse intestinal tract activity is noted throughout all four quadrants of the abdominal-pelvic retroperitoneum, mesentery consistent with normal physiologic distribution of the radiopharmaceutical. Prominent glucose metabolism is defined in the distribution of the anterior, laryngeal structures contiguous to the arytenoid cartilage and cricopharyngeus musculature most consistent with physiologic distribution of the radiotracer. Pertinent CT findings are as follows. CHEST: Bilateral hemithorax pleural effusions demonstrate no evidence of quantitatively significant increased glucose metabolism. There are no parenchymal densities-nodules demonstrated in the right-left hemithorax manifesting quantitatively significant increased glucose concentration. ABDOMEN AND PELVIS: Atherosclerotic calcification is defined in the abdominal aorta without evidence of dilatation, aneurysm formation. Pelvic arterial calcification is observed. 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 Subcentimeter bilateral inguinal soft tissue densities are non-glucose avid. The stomach appears distended. Multiple surgical clips are identified in the upper-mid abdominal retroperitoneum and mesentery. The gallbladder appears surgically absent. Pneumobilia is defined. SKELETAL: Degenerative changes defined in the cervical, thoracic and lumbar spine demonstrate no evidence for glucose hypermetabolism. PET/PET/CT Tumor Base -Thigh Subs IMPRESSION: 1. Increased glucose metabolism identified in the left lobe of the hepatic parenchyma fulfills borderline quantitative criteria for viable neoplasm. (Nelson et al, Archives of Surgery, 133:510 1997). Correlation with magnetic resonance imaging utilizing [id number] may be of benefit for further evaluation. (Adithyaati et al, J Nucl Med 51: 692, 2010). 2. Facilitated glucose concentration demonstrated in the mediastinum and bilateral thoracic perihilum does not fulfill quantitative criteria for viable neoplasm. (Ricardo et al, Journal of Clinical Oncology 16:2142, 1998). Electronic Signature Everardo Cui D.O. Electronically Signed: Everardo Cui DO at 23:24 EDT Tel , Service support ,
== END ==
PROVIDERS: Family Provider Internal Medicine; PCP Internal Medicine; Visit Provider Internal Medicine Hematology & Oncology
DX: C25.0 Malignant neoplasm of head of pancreas (principal); R91.1 Solitary pulmonary nodule
CPT/HCPCS: 78815; A9552

== ENCOUNTER 2017-06-14 12:00 | Outpatient (RCR) | payer MEDICARE, SELFPAY | END 2017-06-14 19:00 | disposition home or self-care (01) | LOC: PT 12:00 | PROVIDERS: Family Provider Internal Medicine; PCP Internal Medicine | DX: R69 Illness, unspecified (principal) ==